=== PATIENT | male | born 1985 | race Caucasian/White ===

== ENCOUNTER 2024-01-04 18:42 | Emergency (ER) | payer OTHER, SELFPAY ==
[2024-01-04 18:47] VITALS: BP 157/72; PULSE 82; RESP 20; TEMP 37.4; O2SAT 96; BMI 38.3
--- NOTE | 2024-01-04 18:53 | ED.GENADULT ---
HPI - General Adult General Chief complaint: Upper Respiratory Symptoms Stated complaint: sinus pressure right ear pain Source: patient Mode of arrival: ambulatory Limitations: no limitations History of Present Illness HPI narrative: 38 yold male presents to the ED for coughing with yellow & Green Phleghm, and right ear pain since Thursday. Patient states no chest pain or shortness of breath Related Data Previous Rx's ?Medication ?Instructions ?Recorded amoxicillin 875 mg-potassium 1 tab PO Q12H 10 days #20 tabs 01/04/24 clavulanate 125 mg tablet oseltamivir 75 mg capsule (Tamiflu) 75 mg PO BID 5 days #10 caps 01/04/24 Allergies Allergy/AdvReac Type Severity Reaction Status Date / Time No Known Allergies Allergy Verified 01/04/24 18:49 [No Known Allergies*] Review of Systems Review of Systems: congestion, cough with yellow & green phelghm, right ear pain Yes all other systems are reviewed and are negative [facility] Social History Social History Advance Directives: No Advance Directives Information Provided: No Physical Exam ED Vital Signs: Vital Signs - 24 hr 01/04/24 18:47 Temperature 99.4 F Pulse Rate 82 Respiratory Rate 20 Blood Pressure 157/72 H Pulse Oximetry 96 Oxygen Delivery Method Room Air BMI result Body Mass Index 38.3 Const General: cooperative, healthy appearing, comfortable, no acute distress, well developed, alert and awake Orientation/consciousness: oriented to person, oriented to place, oriented to time and patient oriented x3 HENMT Head: Yes normal to inspection, Yes No palpable skull fracture present, Yes normocephalic and Yes atraumatic Ears: hearing grossly normal bilaterally, external ears normal, TM's normal bilaterally, TM normal on the right, TM normal on the left, EAC's normal, mastoids normal and no periauricular adenopathy Throat: Yes posterior oropharynx normal, Yes tonsils normal and Yes uvula midline Neck Neck: Yes normal visual inspection, Yes full ROM, Yes no lymphadenopathy, Yes no meningeal signs, Yes trachea midline, Yes supple, No anterior neck swelling and No tender Chest Chest palpation & inspection: normal inspection of the chest and normal palpation of entire chest wall Resp Effort & Inspection: normal respiratory effort and able to speak in complete sentences Auscultation: clear to auscultation bilaterally Cardio Jugular venous distension: no JVD Heart sounds: S1 normal heart sound present and S2 normal heart sound present GI Inspection: Yes normal to inspection Palpation (GI): Soft to palpation, not firm, nontender, no guarding and not rigid General: Yes no CVA tenderness Back/Spine/Pelvis Back: no CVA tenderness and No back tenderness Skin General skin exam: no rashes or lesions noted, elasticity normal and turgor normal Neuro General: oriented to person, oriented to place, oriented to time, patient oriented x3, gait normal, tone normal, moves all extremities, Normal light touch and pain sensation, no meningeal signs and no focal motor deficits Extrem General: Yes normal to inspection, Yes full ROM and Yes capillary refill normal Psych Appearance: grossly normal, well kempt and not disheveled Course Course Course Narrative: RME: 38 yold male presents to the ED for sinus pressure, nasal congestion, cough, chills, and headache. SARS, and strep ordered Medical Decision Making Medical Decision Making MDM Narrative: RME: 38 yold male presens to the ED for URI symptoms. Patient well appearing. Patient postiive for Strep and influenza. Patient dischaged with aumgenint and tamiflu. patient explained worrisome signs and informed to return to the ED if he has them. Differential Diagnosis Differential Diagnoses: The differential diagnosis associated with the presentation includes (flu, strep, covid, RSV) Admission/Observation Consideration of admission/observation: Escalation of care including admission/observation considered Lab Data [facility] Lab Attestation statement: I reviewed the patient's lab results. Labs: Lab Results 01/04/24 Range/Units 19:31 Influenza Type A (PCR) POSITIVE A (Negative) Influenza Type B (PCR) NEGATIVE (Negative) RSV RNA Qual (PCR) NEGATIVE (Negative) SARS-CoV-2 RNA (RT-PCR) NEGATIVE (Negative) S. pyogenes GrpA JOSE ALFREDO Positive A (Negative) Independent Historian Clinical information obtained from an independent historian. History obtained from or confirmed by: Other (patient) External Record Review External record reviewed: Other (prior visits) Prescription Management I considered prescription management with: Antiviral and Antibiotic Discharge Plan Discharge Clinical Impression: Influenza, Strep throat Patient Disposition: Home, Self-Care Instructions: Strep Throat (ED), Influenza (ED) Additional Instructions: You tested positive for influenza strep throat. You will be discharged with Tamiflu and antibiotics. Return to the ED immediately for any drooling, change in voice, chest pain, shortness of breath, headache dizziness, rash, or any other concerning symptoms. Prescriptions: New oseltamivir [Tamiflu] 75 mg capsule 75 mg PO BID 5 Days Qty: 10 0RF amoxicillin-pot clavulanate 875-125 mg tablet 1 tab PO Q12H 10 Days Qty: 20 0RF Stand Alone Forms: Work/School Release Interventions: ED Discharge Assessment Last Done: 01/04/24 20:54 Discharge Date/Time: 01/04/24 20:58 Print Language: Dutch
[2024-01-04 19:43] LABS: IDNOW Serial# 08D9AD1C; Strep A Nucleic Acid Positive (Negative)
[2024-01-04 20:13] LABS: Influenza A PCR POSITIVE (Negative); Influenza B PCR NEGATIVE (Negative); Resp Syncy Virus RNA Qual PCR NEGATIVE (Negative); SARS COV2 PCR INHOUSE NEGATIVE (Negative)
[2024-01-04 20:54] VITALS: BP 136/80; PULSE 87; RESP 16; TEMP 37.3; O2SAT 97
== END 2024-01-04 20:58 | disposition home or self-care (01) ==
PROVIDERS: Emergency Provider Emergency Medicine
DX: J11.1 Influenza due to unidentified influenza virus with other respiratory manifestations (principal); J02.0 Streptococcal pharyngitis
CPT/HCPCS: 0241U; 87651; 99282; 99283

== ENCOUNTER 2024-10-20 08:57 | Emergency (ER) | payer OTHER, SELFPAY ==
--- NOTE | ~2024-10-20 | CT_ITS ---
EXAMINATION: CT ABDOMEN AND PELVIS WITHOUT CONTRAST CLINICAL INFORMATION: Flank pain, rule out kidney stone, hematuria. COMPARISON: 06/06/2018. TECHNIQUE: Multidetector volumetric imaging was performed from the superior aspect of the liver through the pubic symphysis. Sagittal and coronal reformatted images were obtained on the technologist's workstation. This CT examination was performed using dose optimization techniques as appropriate, variously including the following: *Automated exposure control *Adjustment of mA and/or kV according to patient size (this includes techniques or standardized protocols for targeted exams where dose is matched to indication/reason for exam; i.e. extremities or head) *Use of iterative reconstruction technique FINDINGS: LUNG BASES: -Mild motion degradation. Dependent atelectasis in the superior segment right lower lobe. Lung bases otherwise clear. No effusions. -Heart size is normal. -There is a small to moderate-sized type I hiatus hernia. LIVER, GALLBLADDER, AND BILIARY TREE: There is mild hepatomegaly, and diffuse hepatic fatty infiltration. There are foci of focal fatty sparing abutting the gallbladder fossa. No suspicious hepatic lesion is evident allowing for noncontrast technique. Hepatic contour is smooth. No intrahepatic or extrahepatic biliary dilatation. The gallbladder is unremarkable with no evidence of radiopaque gallstones, gallbladder wall thickening, or obvious pericholecystic inflammatory changes. PANCREAS: Unremarkable. SPLEEN: Unremarkable. ADRENAL GLANDS: Unremarkable. KIDNEYS AND URETERS: The kidneys are normal in size, shape, and attenuation. No hydronephrosis, hydroureter, or calculi seen. No perinephric stranding. BLADDER: Underdistended. No focal abnormality. GASTROINTESTINAL TRACT: The small and large bowel are unremarkable. The appendix is unremarkable. ABDOMINAL WALL: No significant hernia is appreciated. LYMPH NODES: Normal. VASCULAR: Unremarkable. PELVIC VISCERA: The prostate and seminal vesicles are unremarkable. OSSEOUS STRUCTURES: Unremarkable. CT/CT abdomen pelvis wo IV con IMPRESSION: 1. No acute findings. 2. No CT explanation for flank pain. No renal calculi, hydronephrosis, or hydroureter. 3. Mild hepatomegaly with diffuse fatty infiltration. Electronically signed by: Bro Rangel MD 10/20/2024 02:35 PM [facility]
[2024-10-20 09:18] VITALS: BP 142/87; PULSE 76; RESP 16; TEMP 36; O2SAT 98; BMI 29.6
[2024-10-20 09:52] LABS: MANUAL DIFF FLAG NO
[2024-10-20 09:53] LABS: Basophils Percent Auto 0.4 % (0-2); Eosinophils Absolute Auto 0.7 X10*3/uL (0.0-0.4); Eosinophils Percent Auto 7.2 % (0-4); Hematocrit 44.9 % (42.0-52.0); Hemoglobin 15.6 g/dl (14.0-18.0); Imm Gran Abs Auto 0.04 X10*3/uL (0.00-0.03); Imm Gran Pct Auto 0.4 % (0.0-0.4); Mean Corpuscular HGB Conc 34.7 g/dl (31.0-36.0); Mean Corpuscular Hemoglobin 30.1 pg (27.0-33.0); Mean Corpuscular Volume 86.7 fL (80.0-98.0); Mean Platelet Volume 8.7 fL (9.4-12.4); Monocytes Absolute Auto 0.8 X10*3/uL (0.1-1.2); Monocytes Percent Auto 9.1 % (2-11); Neutrophils Absolute Auto 6.5 x10*3/uL (2.0-8.3); Neutrophils Percent Auto 71.9 % (45-73); Platelet Count 156 X10*3/uL (160-400); Red Blood Count 5.18 X10*6/uL (4.60-5.80); Red Cell Distribution Width 12.2 % (11.0-16.0)
[2024-10-20 10:10] LABS: Alanine Aminotransferase 116 U/L (0-40); Albumin Level 4.1 g/dL (3.5-5.0); Alkaline Phosphatase 108 U/L (39-117); Anion Gap 9 (12-20); Aspartate Amino Transferase 62 U/L (5-37); Blood Urea Nitrogen 9 mg/dL (9-16); Calcium 9.2 mg/dL (8.4-10.2); Carbon Dioxide 29 mmol/L (22-29); Chloride 105 mmol/L (96-108); Estimated Glomerular Filt Rate > 60; Glucose Random 115 mg/dL (60-115); Potassium 4.4 mmol/L (3.3-5.1); Sodium 139 mmol/L (135-145); Total Protein 7.3 g/dL (6.5-8.0)
[2024-10-20 13:03] LABS: Appearance Urine Clear; Color Urine Dark Yellow; Glucose Urine UA Negative (Negative); Leukocyte Esterase Urine Negative (Negative); Nitrite Urine Negative (Negative); PH 6.5 (5.0-9.0); Specific Gravity - Urine >= 1.030 (1.005-1.025); UMIC TRIGGER UACC YES; Urine Blood Moderate (2+) (Negative); Urine Ketones Negative (Negative); Urine Protein Trace mg/dL (Neg-Trace)
[2024-10-20 13:08] LABS: Bacteria Urine None Seen (None Seen); Hyaline Casts Urine 0-2 /LPF (0-2); RBC Urine >20 /HPF (0-2); Squamous Epithelial Cell Urine 0-2 /HPF (0-2); WBC Urine 0-5 /HPF (0-5)
[2024-10-20 16:00] VITALS: BP 132/76; PULSE 73; RESP 19; TEMP 36.6; O2SAT 98
--- NOTE | 2024-10-20 17:06 | ED_ITS ---
HPI - General Adult General Chief complaint: Back Pain/Injury Stated complaint: low back pain Time Seen by Provider: 10/20/24 11:55 History of Present Illness HPI narrative: Patient with 2 complaints, 1 is pain in his back, he has back pain frequently from arthritis but this is different in the flank it is on both sides but worse on the left and feels like his prior kidney stone, this pain began this morning, he also says there is some mild burning with urination, there is no incontinence, no change to bowel habits He says he is sexually active with only his , denies any discharge, no testicular pain or swelling, no nausea vomiting or diarrhea Pain is it back is continuously present it is a little worse with movement but not relieved by finding a comfortable position No chest pain no fever no cough Related Data Previous Rx's ?Medication ?Instructions ?Recorded amoxicillin 875 mg-potassium 1 tab PO Q12H 10 days #20 tabs 01/04/24 clavulanate 125 mg tablet oseltamivir 75 mg capsule (Tamiflu) 75 mg PO BID 5 days #10 caps 01/04/24 ibuprofen 600 mg tablet 600 mg PO Q6H PRN pain #20 tabs 10/20/24 Allergies Allergy/AdvReac Type Severity Reaction Status Date / Time No Known Allergies Allergy Verified 10/20/24 09:20 [No Known Allergies*] [facility] Past Medical History Source: nursing notes reviewed Social History Social History Advance Directives: No Advance Directives Information Provided: Yes Do you have a plan to hurt others: No Plan Physical Exam ED Vital Signs: Vital Signs - 24 hr 10/20/24 09:18 Temperature 96.8 F Pulse Rate 76 Respiratory Rate 16 Blood Pressure 142/87 H Pulse Oximetry 98 Oxygen Delivery Method Room Air BMI result Body Mass Index 29.6 Patient is uncomfortable appearing Neck is supple Chest clear to auscultation bilateral Heart no murmur Abdomen is soft and nontender The back exam there is tenderness from flank down to lower lumbar area on both left and right size, pain is worse with movement but remains present at rest There is no focal bony tenderness, there is no rash on the skin of the back Extremities full range of motion x4, no calf swelling or tenderness Skin no rash Neuro gait balance are normal, motor is 5/5 x4, sensation intact and symmetrical in distal extremities Course Course Course Narrative: CT abdomen and pelvis without contrast showed no acute finding no kidney stones no hydronephrosis no hydroureter CBC no white count no anemia platelets were 156 AST was 62 and ALT was 116 elevated, patient will be advised to follow with primary doctor for repeat testing Urinalysis showed over 20 rbc's, 0-5 WBC no bacteria Serology for GC chlamydia is pending, patient states he is sexually active with only 1 partner his , denies any discharge Patient actually had resolution of his flank and back pain while here in the ER with no analgesics, he did say it felt very similar to his prior kidney stone, it is possible he passed a small stone But main concern is microscopic hematuria and he is advised that it is very important follow-up with urologist that malignancy is on the differential for microscopic hematuria, he says he will follow up and that he has a primary care doctor and will get a referral if needed and will also call the urologist Patient is discharged and will be contacted if GC or chlamydia are positive, and is advised he can return to the ER any time Medical Decision Making Lab Data MDM Lab Attestation statement: I reviewed the patient's lab results. 10/20/24 09:49 10/20/24 09:49 Labs: Lab Results 10/20/24 10/20/24 Range/Units 09:49 12:55 WBC 9.0 (4.8-10.8) X10*3/uL RBC 5.18 (4.60-5.80) X10*6/uL Hgb 15.6 (14.0-18.0) g/dl Hct 44.9 (42.0-52.0) % MCV 86.7 (80.0-98.0) fL MCH 30.1 (27.0-33.0) pg MCHC 34.7 (31.0-36.0) g/dl RDW 12.2 (11.0-16.0) % Plt Count 156 L (160-400) X10*3/uL MPV 8.7 L (9.4-12.4) fL Immature Gran % (Auto) 0.4 (0.0-0.4) % Neut % (Auto) 71.9 (45-73) % Lymph % (Auto) 11.0 L (20-40) % [place] % (Auto) 9.1 (2-11) % Eos % (Auto) 7.2 H (0-4) % Baso % (Auto) 0.4 (0-2) % Lymph # (Auto) 1.0 L (1.2-4.9) X10*3/uL [place] # (Auto) 0.8 (0.1-1.2) X10*3/uL Eos # (Auto) 0.7 H (0.0-0.4) X10*3/uL Baso # (Auto) 0.0 (0.0-0.2) X10*3/uL Abs Immat Gran (auto) 0.04 H (0.00-0.03) X10*3/uL Absolute Neuts (auto) 6.5 (2.0-8.3) x10*3/uL Absolute Nucleated RBC 0.000 (0.0-0.012) X10*3/uL Nucleated RBC % (auto) 0.0 (0.0-0.2) /100WBC Sodium 139 (135-145) mmol/L Potassium 4.4 (3.3-5.1) mmol/L Chloride 105 (96-108) mmol/L Carbon Dioxide 29 (22-29) mmol/L Anion Gap 9 L (12-20) BUN 9 (9-16) mg/dL Creatinine 0.79 (0.5-1.4) mg/dL Estim Creat Clear Calc 137.0 Estimated GFR > 60 Random Glucose 115 (60-115) mg/dL Calcium 9.2 (8.4-10.2) mg/dL Total Bilirubin 1.0 (0.0-1.0) mg/dL AST 62 H (5-37) U/L ALT 116 H (0-40) U/L Alkaline Phosphatase 108 (39-117) U/L Total Protein 7.3 (6.5-8.0) g/dL Albumin 4.1 (3.5-5.0) g/dL Urine Color Dark Yellow Urine Appearance Clear Urine pH 6.5 (5.0-9.0) Ur Specific Cory >= 1.030 H (1.005-1.025) Urine Protein Trace (Neg-Trace) mg/dL Urine Glucose (UA) Negative (Negative) mg/dL Urine Ketones Negative (Negative) mg/dL Urine Blood Moderate (2+) H (Negative) Urine Nitrite Negative (Negative) Ur Leukocyte Esterase Negative (Negative) Urine RBC >20 H (0-2) /HPF Urine WBC 0-5 (0-5) /HPF Ur Squamous Epith Cells 0-2 (0-2) /HPF Urine Bacteria None Seen (None Seen) Hyaline Casts 0-2 (0-2) /LPF Discharge Plan Discharge Clinical Impression: Hematuria, microscopic Patient Disposition: Home, Self-Care Additional Instructions: Today we found blood in the urine, which has to be checked out and followed up by a Urology specialist as you may need further testing to find out what is causing this In rare cases at can be something bad so very important to follow-up You might need a referral from primary care so check in with your doctor to, but you can call the urologist whose name we have provide Return to the ER any time for blood in the urine, fever, worsening back or abdominal pain vomiting any worse condition or any concerns Use Motrin for mild aches and pains Drink plenty of flu Prescriptions: New ibuprofen 600 mg tablet 600 mg PO Q6H PRN (Reason: pain) Qty: 20 0RF No Action oseltamivir [Tamiflu] 75 mg capsule 75 mg PO BID 5 Days Qty: 10 0RF amoxicillin-pot clavulanate 875-125 mg tablet 1 tab PO Q12H 10 Days Qty: 20 0RF Referrals: Juan A Acosta MD [Physician] - (Microscopic hematuria) Stand Alone Forms: Work/School Release Print Language: Bulgarian
[2024-10-20 17:26] VITALS: BP 132/76; PULSE 73; RESP 19; TEMP 36.6; O2SAT 98
[2024-10-20 18:37] LABS: CT PCR NOT DETECTED (Not Detect.); NG PCR NOT DETECTED (Not Detect.)
== END 2024-10-20 19:04 | disposition home or self-care (01) ==
PROVIDERS: Physician Assistant Medical; Emergency Provider Emergency Medicine
DX: R31.29 Other microscopic hematuria (principal); R30.0 Dysuria
CPT/HCPCS: 36415; 74176; 80053; 81001; 81003; 85025; 87491; 87591; 99283; 99284

== ENCOUNTER → 2024-10-20 13:24 | Outpatient (BNV) | payer OTHER, SELFPAY | PROVIDERS: Emergency Provider Emergency Medicine; Visit Provider Radiology Diagnostic Radiology | DX: M54.50 Low back pain, unspecified (principal) | CPT/HCPCS: 74176 ==

== ENCOUNTER 2024-10-25 15:29 | Emergency (ER) | payer OTHER, SELFPAY ==
--- NOTE | ~2024-10-25 | CT_ITS ---
CLINICAL HISTORY: infection CT sinuses without contrast Comparison: None Findings: No acute fracture or dislocation injury identified. The bilateral globes appear intact. No retrobulbar edema or hematoma visualized. Minimal mucosal thickening identified within the bilateral sphenoid sinuses and bilateral maxillary sinuses. Minimal to mild mucosal thickening identified within the ethmoid air cells. The bilateral frontal sinuses appear clear. The left ostiomeatal unit appears patent. Mild mucosal thickening present at the right hiatus semilunaris. No rachel bullosa or Jazmín cells. The nasal airways are patent. Mucosal thickening identified within the nasal cavity on the right. Rightward deviation of the anterior nasal septum present. The visualized portions of the bilateral mastoid air cells appear clear. Dental caries are present. IMPRESSION: 1. Minimal to mild mucosal thickening identified within the paranasal sinuses as described above with mild mucosal thickening at the right hiatus semilunaris and mucosal thickening within the right nasal cavity. This document has been electronically signed by: Bryson Drake MD on 10/26/2024 00:53:02
--- NOTE | ~2024-10-25 | XR_ITS ---
CLINICAL HISTORY: cough, 2 view chest x-ray Comparison: None Findings: The lungs are clear. Heart size is normal. No acute fracture. IMPRESSION: 1. No acute findings. This document has been electronically signed by: Renuka Yanez MD on 10/25/2024 20:53:43
--- NOTE | ~2024-10-25 | XR_ITS ---
CLINICAL HISTORY: pain, 4 view left knee Comparison: None Findings: Bones intact. No dislocations. No joint effusion. No radiopaque foreign body. IMPRESSION: 1. No acute fracture or dislocation injury identified at the left knee. This document has been electronically signed by: Bryson Drake MD on 10/25/2024 22:38:48
[2024-10-25 16:11] VITALS: BP 132/72; PULSE 113; RESP 18; TEMP 37.6; O2SAT 97; BMI 37.6
--- NOTE | 2024-10-25 16:19 | ED.GENADULT ---
HPI - General Adult General Chief complaint: General Medical Stated complaint: Lower back pain Time Seen by Provider: 10/25/24 20:01 Source: patient Limitations: language barrier History of Present Illness ED Provider: Sarahi Ahmadi PA-C HPI narrative: 38-year-old male presents with multiple complaints. Patient states he was seen in the emergency department 5 days ago, found to have blood in his urine, was given urology follow up. He has been having ongoing back, bilateral hip and left knee pain. He states he verbalized his concerns at that time. No change in the musculoskeletal symptoms. Denies inability to ambulate, or flex and extend the left knee. Denies redness or swelling of the joint. Denies history of gout. Denies ongoing flank pain, dysuria or hematuria. He states his urinary symptoms have resolved. In addition, patient states he has been having cyclic nocturnal fevers for a week. Over the past 2 days, he developed bloody nasal secretions. He denies that he is coughing up bloody mucus. Denies sick contacts with a febrile illness. Related Data Previous Rx's ?Medication ?Instructions ?Recorded amoxicillin 875 mg-potassium 1 tab PO Q12H 10 days #20 tabs 01/04/24 clavulanate 125 mg tablet oseltamivir 75 mg capsule (Tamiflu) 75 mg PO BID 5 days #10 caps 01/04/24 ibuprofen 600 mg tablet 600 mg PO Q6H PRN pain #20 tabs 10/20/24 amoxicillin 875 mg-potassium 1 tab PO BID #14 tabs 10/26/24 clavulanate 125 mg tablet Allergies Allergy/AdvReac Type Severity Reaction Status Date / Time No Known Allergies Allergy Verified 10/25/24 16:16 [No Known Allergies*] Review of Systems Review of Systems: Yes all other systems are reviewed and are negative Constitutional: Constitutional: Reports fatigue, Reports fever(s) and Reports malaise ENT: Reports nasal congestion, Reports nasal discharge and Reports post nasal drip Cardiovascular: Cardiovascular: Denies chest pain and Denies dyspnea Respiratory: Respiratory: Denies cough, Denies dyspnea and Denies wheezing Gastrointestinal: Gastrointestinal: Denies abdominal pain, Denies diarrhea, Denies nausea and Denies vomiting Genitourinary: Genitourinary: Denies hematuria, Denies dysuria, Denies flank pain, Denies penile discharge and Denies testicular pain Musculoskeletal: Musculoskeletal: Reports back pain, Reports myalgias, Reports arthralgias, Denies joint swelling and Denies radiating pain into limb Endocrine: Endocrine: Reports fatigue Allergic/Immunologic: Allergic/Immunologic: Denies wheezing [facility] Past Medical History Attestation statement: The following information was validated with the patient. Social History Social History Smoked in Last 30 Days: No Use of substances other than those prescribed or required for medical reasons: Yes Substance Use Type: Marijuana Advance Directives: No Advance Directives Information Provided: No Physical Exam ED Vital Signs: Vital Signs - 24 hr 10/25/24 16:11 10/25/24 19:40 10/25/24 23:22 Temperature 99.6 F 98.4 F 100.2 F Pulse Rate 113 H 98 108 H Respiratory Rate 18 20 20 Blood Pressure 132/72 139/59 L 115/54 L Pulse Oximetry 97 100 94 Oxygen Delivery Method Room Air Room Air Room Air 10/26/24 00:43 Temperature 98.6 F Pulse Rate Respiratory Rate Blood Pressure Pulse Oximetry Oxygen Delivery Method BMI result Body Mass Index 37.6 Const Other: Alert Orientation/consciousness: patient oriented x3 Resp Other: No tachypnea, lungs clear to auscultation Cardio Other: Normal peripheral perfusion Skin Other: Warm dry no rash Neuro Other: Antalgic gait secondary to left knee pain General: patient oriented x3, no focal motor deficits and CN's II-XI intact bilaterally Extrem Other: Patient able to flex and extend the left knee, pain is elicited medially, there was no overlying warmth or swelling or erythema noted Psych Other: Cooperative Course Course Course Narrative: This is an RME: Additional HPI, ROS, PE not included below will be deferred to primary provider. RME assessment and note performed by: Nurys Dougherty PA-C This is a [id number]-male who presents to the ER with a complaint of subjective fevers and BL hip and left knee pain. Pt tachycardic, no CP or SOB. Plan: Labs, EKG, UA, further ER eval needed. Reevaluation(s) Reevaluation #1: Concerned for sepsis lactic results at 3.2, blood cultures already obtained as well, he was given 500 mL of saline, still do not have a source, starting ceftriaxone Time: 22:08 Reevaluation #2: Patient developed a fever, his pressure is now 111 sbp, he is mildly tachy, giving an additional 1L of fluid and Toradol, CT sinuses pending Time: 23:39 Reevaluation #3: At the time of discharge the patient was no longer febrile, second lactic acid 1.1......treating for sinusitis Time: 01:36 Medications Administered Generic Name Dose Route Start Last Admin Trade Name Freq PRN Reason Stop Dose Admin Sodium Chloride 1,000 mls @ 999 mls/hr 10/26/24 00:30 10/26/24 00:38 Ns IV 10/26/24 01:30 999 mls/hr .Q1H1M SELMA Administration Discontinued Medications Generic Name Dose Route Start Last Admin Trade Name Freq PRN Reason Stop Dose Admin Ceftriaxone Sodium 2 gm 10/25/24 22:09 10/25/24 22:20 Ceftriaxone Sodium 2 Gm Vial IVPUSH 10/25/24 22:10 2 gm ONCE ONE Administration Sodium Chloride 500 mls @ 500 mls/hr 10/25/24 21:04 10/25/24 22:45 Ns IV 10/25/24 22:03 Infused .Q1H ONE Infusion Ketorolac Tromethamine 15 mg 10/25/24 23:39 10/25/24 23:59 Ketorolac Tromethamine 15 Mg/Ml Vial IVPUSH 10/25/24 23:40 15 mg ONCE ONE Administration Medical Decision Making Medical Decision Making MDM Narrative: 38-year-old male presents with multiple complaints. Patient states he was seen in the emergency department 5 days ago, found to have blood in his urine, was given urology follow up. He has been having ongoing back, bilateral hip and left knee pain. He states he verbalized his concerns at that time. No change in the musculoskeletal symptoms. Denies inability to ambulate, or flex and extend the left knee. Denies redness or swelling of the joint. Denies history of gout. Denies ongoing flank pain, dysuria or hematuria. He states his urinary symptoms have resolved. In addition, patient states he has been having cyclic nocturnal fevers for a week. Over the past 2 days, he developed bloody nasal secretions. He denies that he is coughing up bloody mucus. Denies sick contacts with a febrile illness. Problem: Chronic back hip and knee pain History: Per patient I have considered the following differential diagnoses: Septic arthritis, gout, cellulitis, pneumonia, sinusitis, viral syndrome,sepsis Plan: Patient here with numerous complaints, some screening labs were obtained while he was a triage including a viral panel. A chest x-ray was not obtained. When I initially read the triage note, it appeared that he was coughing up bloody secretions, I am ordering a chest x-ray. He is also complaining of bloody nasal secretions with postnasal drip. He may have a CT scan of the sinuses. He states he has only had symptoms for 2 days, I typically would not treat his sinusitis unless he had symptoms for 2 weeks. However, he could have been congested for longer, and now this is his 1st manifestation of a bacterial sinusitis. The patient is not the best historian. In regard to the chronic back, bilateral hip and knee pain, he states he is most bothered by the knee pain. He is able to flex and extend, I do have low suspicion for a septic arthritis, we will obtain an x-ray, adding on inflammatory markers and a uric acid. I am considering potential sepsis, at this point he is afebrile, temp was 99.6?, he had mild tachycardia early on, adding blood cultures lactic acid and giving 500 mL of normal saline as he is normotensive. I have independently reviewed the following tests: Labs: Leukocytosis with left shift, no electrolyte abnormality, 1st lactic acid 3.2, the 2nd is 1.1, viral panel negative, inflammatory markers minimally elevated Chest x-ray:indings: The lungs are clear. Heart size is normal. No acute fracture. IMPRESSION: 1. No acute findings. This document has been electronically signed by: Renuka Yanez MD on 10/25/2024 20:53:43 CT sinuses: Findings: No acute fracture or dislocation injury identified. The bilateral globes appear intact. No retrobulbar edema or hematoma visualized. Minimal mucosal thickening identified within the bilateral sphenoid sinuses and bilateral maxillary sinuses. Minimal to mild mucosal thickening identified within the ethmoid air cells. The bilateral frontal sinuses appear clear. The left ostiomeatal unit appears patent. Mild mucosal thickening present at the right hiatus semilunaris. No rachel bullosa or Jazmín cells. The nasal airways are patent. Mucosal thickening identified within the nasal cavity on the right. Rightward deviation of the anterior nasal septum present. The visualized portions of the bilateral mastoid air cells appear clear. Dental caries are present. IMPRESSION: 1. Minimal to mild mucosal thickening identified within the paranasal sinuses as described above with mild mucosal thickening at the right hiatus semilunaris and mucosal thickening within the right nasal cavity. X-ray left knee:Comparison: None Findings: Bones intact. No dislocations. No joint effusion. No radiopaque foreign body. IMPRESSION: 1. No acute fracture or dislocation injury identified at the left knee. This document has been electronically signed by: Bryson Drake MD on 10/25/2024 22:38:48 CT sinus: Findings: No acute fracture or dislocation injury identified. The bilateral globes appear intact. No retrobulbar edema or hematoma visualized. Minimal mucosal thickening identified within the bilateral sphenoid sinuses and bilateral maxillary sinuses. Minimal to mild mucosal thickening identified within the ethmoid air cells. The bilateral frontal sinuses appear clear. The left ostiomeatal unit appears patent. Mild mucosal thickening present at the right hiatus semilunaris. No rachel bullosa or Jazmín cells. The nasal airways are patent. Mucosal thickening identified within the nasal cavity on the right. Rightward deviation of the anterior nasal septum present. The visualized portions of the bilateral mastoid air cells appear clear. Dental caries are present. IMPRESSION: 1. Minimal to mild mucosal thickening identified within the paranasal sinuses as described above with mild mucosal thickening at the right hiatus semilunaris and mucosal thickening within the right nasal cavity. Lab Data 10/25/24 16:52 10/25/24 16:53 Labs: Lab Results 10/25/24 10/25/24 10/25/24 Range/Units 16:52 16:53 21:35 WBC 13.9 H (4.8-10.8) X10*3/uL RBC 5.09 (4.60-5.80) X10*6/uL Hgb 15.2 (14.0-18.0) g/dl Hct 43.7 (42.0-52.0) % MCV 85.9 (80.0-98.0) fL MCH 29.9 (27.0-33.0) pg MCHC 34.8 (31.0-36.0) g/dl RDW 12.2 (11.0-16.0) % Plt Count 292 D (160-400) X10*3/uL MPV 8.8 L (9.4-12.4) fL Immature Gran % (Auto) 1.0 H (0.0-0.4) % Neut % (Auto) 82.1 H (45-73) % Lymph % (Auto) 5.9 L (20-40) % [place] % (Auto) 4.7 (2-11) % Eos % (Auto) 5.8 H (0-4) % Baso % (Auto) 0.5 (0-2) % Lymph # (Auto) 0.8 L (1.2-4.9) X10*3/uL [place] # (Auto) 0.7 (0.1-1.2) X10*3/uL Eos # (Auto) 0.8 H (0.0-0.4) X10*3/uL Baso # (Auto) 0.1 (0.0-0.2) X10*3/uL Abs Immat Gran (auto) 0.14 H (0.00-0.03) X10*3/uL Absolute Neuts (auto) 11.4 H (2.0-8.3) x10*3/uL Absolute Nucleated RBC 0.000 (0.0-0.012) X10*3/uL Nucleated RBC % (auto) 0.0 (0.0-0.2) /100WBC ESR 16 H (0-15) MM/HR Sodium 136 (135-145) mmol/L Potassium 4.3 (3.3-5.1) mmol/L Chloride 101 (96-108) mmol/L Carbon Dioxide 27 (22-29) mmol/L Anion Gap 12 (12-20) BUN 9 (9-16) mg/dL Creatinine 0.76 (0.5-1.4) mg/dL Estim Creat Clear Calc 155.0 Estimated GFR > 60 Random Glucose 123 H (60-115) mg/dL Lactic Acid 3.2 H* (0.5-2.0) mmol/L Lactic Acid F/U @ 2Hr (0.5-2.0) mmol/L Uric Acid 3.7 (3.4-7.0) mg/dL Calcium 8.8 (8.4-10.2) mg/dL Magnesium 1.9 (1.6-2.6) mg/dL Total Bilirubin 0.5 (0.0-1.0) mg/dL Direct Bilirubin 0.2 (0.0-0.5) mg/dL AST 58 H (5-37) U/L ALT 95 H (0-40) U/L Alkaline Phosphatase 118 H (39-117) U/L C-Reactive Protein 5.71 H (< or = 0.50) mg/dL Total Protein 7.3 (6.5-8.0) g/dL Albumin 3.8 (3.5-5.0) g/dL Influenza Type A (PCR) NEGATIVE (Negative) Influenza Type B (PCR) NEGATIVE (Negative) RSV RNA Qual (PCR) NEGATIVE (Negative) SARS-CoV-2 RNA (RT-PCR) NEGATIVE (Negative) 10/26/24 Range/Units 00:11 WBC (4.8-10.8) X10*3/uL RBC (4.60-5.80) X10*6/uL Hgb (14.0-18.0) g/dl Hct (42.0-52.0) % MCV (80.0-98.0) fL MCH (27.0-33.0) pg MCHC (31.0-36.0) g/dl RDW (11.0-16.0) % Plt Count (160-400) X10*3/uL MPV (9.4-12.4) fL Immature Gran % (Auto) (0.0-0.4) % Neut % (Auto) (45-73) % Lymph % (Auto) (20-40) % [place] % (Auto) (2-11) % Eos % (Auto) (0-4) % Baso % (Auto) (0-2) % Lymph # (Auto) (1.2-4.9) X10*3/uL [place] # (Auto) (0.1-1.2) X10*3/uL Eos # (Auto) (0.0-0.4) X10*3/uL Baso # (Auto) (0.0-0.2) X10*3/uL Abs Immat Gran (auto) (0.00-0.03) X10*3/uL Absolute Neuts (auto) (2.0-8.3) x10*3/uL Absolute Nucleated RBC (0.0-0.012) X10*3/uL Nucleated RBC % (auto) (0.0-0.2) /100WBC ESR (0-15) MM/HR Sodium (135-145) mmol/L Potassium (3.3-5.1) mmol/L Chloride (96-108) mmol/L Carbon Dioxide (22-29) mmol/L Anion Gap (12-20) BUN (9-16) mg/dL Creatinine (0.5-1.4) mg/dL Estim Creat Clear Calc Estimated GFR Random Glucose (60-115) mg/dL Lactic Acid (0.5-2.0) mmol/L Lactic Acid F/U @ 2Hr 1.1 (0.5-2.0) mmol/L Uric Acid (3.4-7.0) mg/dL Calcium (8.4-10.2) mg/dL Magnesium (1.6-2.6) mg/dL Total Bilirubin (0.0-1.0) mg/dL Direct Bilirubin (0.0-0.5) mg/dL AST (5-37) U/L ALT (0-40) U/L Alkaline Phosphatase (39-117) U/L C-Reactive Protein (< or = 0.50) mg/dL Total Protein (6.5-8.0) g/dL Albumin (3.5-5.0) g/dL Influenza Type A (PCR) (Negative) Influenza Type B (PCR) (Negative) RSV RNA Qual (PCR) (Negative) SARS-CoV-2 RNA (RT-PCR) (Negative) Discharge Plan Discharge Clinical Impression: Fever, Sinusitis Patient Disposition: Home, Self-Care Instructions: Sinusitis (ED), Fever in Adults (ED) Additional Instructions: You were found to have sinusitis, you develop a fever in the emergency department. See home care instructions. Take the Augmentin as directed. Follow up with your primary care provider as needed. Prescriptions: New amoxicillin-pot clavulanate 875-125 mg tablet 1 tab PO BID Qty: 14 0RF No Action oseltamivir [Tamiflu] 75 mg capsule 75 mg PO BID 5 Days Qty: 10 0RF amoxicillin-pot clavulanate 875-125 mg tablet 1 tab PO Q12H 10 Days Qty: 20 0RF ibuprofen 600 mg tablet 600 mg PO Q6H PRN (Reason: pain) Qty: 20 0RF Print Language: Turkish
--- NOTE | 2024-10-25 16:21 | ECG_ITS ---
Test Reason : tachycardia Blood Pressure : */* mmHG Vent. Rate : 104 BPM Atrial Rate : 104 BPM P-R Int : 132 ms QRS Dur : 80 ms QT Int : 314 ms P-R-T Axes : 53 8 38 degrees QTcB Int : 412 ms Sinus tachycardia Otherwise normal ECG No previous ECGs available Referred By: Nurys Dougherty Electronically Signed By: GABRIEL LAKHANI
[2024-10-25 16:57] LABS: MANUAL DIFF FLAG NO
[2024-10-25 17:08] LABS: Basophils Absolute Auto 0.1 X10*3/uL (0.0-0.2); Basophils Percent Auto 0.5 % (0-2); Eosinophils Absolute Auto 0.8 X10*3/uL (0.0-0.4); Eosinophils Percent Auto 5.8 % (0-4); Hematocrit 43.7 % (42.0-52.0); Hemoglobin 15.2 g/dl (14.0-18.0); Imm Gran Abs Auto 0.14 X10*3/uL (0.00-0.03); Lymphocytes Absolute Auto 0.8 X10*3/uL (1.2-4.9); Lymphocytes Percent Auto 5.9 % (20-40); Mean Corpuscular HGB Conc 34.8 g/dl (31.0-36.0); Mean Corpuscular Hemoglobin 29.9 pg (27.0-33.0); Mean Corpuscular Volume 85.9 fL (80.0-98.0); Mean Platelet Volume 8.8 fL (9.4-12.4); Monocytes Absolute Auto 0.7 X10*3/uL (0.1-1.2); Monocytes Percent Auto 4.7 % (2-11); Neutrophils Absolute Auto 11.4 x10*3/uL (2.0-8.3); Neutrophils Percent Auto 82.1 % (45-73); Platelet Count 292 X10*3/uL (160-400); Red Blood Count 5.09 X10*6/uL (4.60-5.80); Red Cell Distribution Width 12.2 % (11.0-16.0); White Blood Count 13.9 X10*3/uL (4.8-10.8)
[2024-10-25 17:25] LABS: Alanine Aminotransferase 95 U/L (0-40); Albumin Level 3.8 g/dL (3.5-5.0); Alkaline Phosphatase 118 U/L (39-117); Anion Gap 12 (12-20); Aspartate Amino Transferase 58 U/L (5-37); Bilirubin Direct 0.2 mg/dL (0.0-0.5); Bilirubin Total 0.5 mg/dL (0.0-1.0); Blood Urea Nitrogen 9 mg/dL (9-16); Calcium 8.8 mg/dL (8.4-10.2); Carbon Dioxide 27 mmol/L (22-29); Chloride 101 mmol/L (96-108); Estimated Glomerular Filt Rate > 60; Glucose Random 123 mg/dL (60-115); Magnesium 1.9 mg/dL (1.6-2.6); Potassium 4.3 mmol/L (3.3-5.1); Sodium 136 mmol/L (135-145); Total Protein 7.3 g/dL (6.5-8.0)
[2024-10-25 17:38] LABS: Influenza A PCR NEGATIVE (Negative); Influenza B PCR NEGATIVE (Negative); Resp Syncy Virus RNA Qual PCR NEGATIVE (Negative); SARS COV2 PCR INHOUSE NEGATIVE (Negative)
[2024-10-25 19:40] VITALS: BP 139/59; PULSE 98; RESP 20; TEMP 36.9; O2SAT 100
--- OUTSIDE RECORDS SUMMARY | 2024-10-25 20:12 | XMS_ITS | Encounter Summary ---
Author Organization [employer] Address [address] [place] [address] Care Team Providers Care Supervisor Title Name Role Phone Unavailable Primary Care Provider Unavailabl e Reason for Visit * Reason Onset Date Comments NEW PT 10/21/2024 Encounter Details Date Type Department Care Team ([facility] st Contact Info) Description 10/21/2024 Telephone [facility] [address] [place] [address] Gio Hernandez MD [address] [place] [address] NEW PT Social History Tobacco Use Types Packs/Day Years Used Date Smoking Tobacco: Never Assessed Sex and Gender Information Value Date Recorded Sex Assigned at Male 07/28/2022 10:35 AM EDT Legal Sex Male 10:35 AM EDT Gender Identity Male 07/28/2022 10:35 AM EDT Sexual Orientation Choose not to disclose 2021 10:35 AM EDT documented as of this encounter Miscellaneous Notes * Telephone Encounter - Aaron Goncalves - 10/21/2024 1:23 PM EST Patient added to [facility] New Patient wait list as 10-21-24 * Telephone Encounter - Pernell Kasper - 10/21/2024 12:41 PM EST TC from caller requesting NEW PATIENT visit . DX : Arthritis Medical Concern: UTI Blood urine Needs to visit urologist Insurance name : [employer] Location : [place] Demographic information updated documented in this encounter Plan of Treatment Not on file documented as of this encounter Visit Diagnoses Not on filedocumented in this encounter
[2024-10-25 21:43] LABS: C Reactive Protein 5.71 mg/dL (< or = 0.50)
[2024-10-25] MEDS: 0.9 % Sodium Chloride 500 ML IV (21:45)
[2024-10-25 21:48] LABS: Uric Acid 3.7 mg/dL (3.4-7.0)
[2024-10-25 22:08] LABS: Lactic Acid 3.2 mmol/L (0.5-2.0)
[2024-10-25] MEDS: cefTRIAXone sodium 2 GM VIAL IVPUSH (22:20)
[2024-10-25 22:40] LABS: Erythrocyte Sedimentation Rate 16 MM/HR (0-15)
[2024-10-25 23:22] VITALS: BP 115/54; PULSE 108; RESP 20; TEMP 37.9; O2SAT 94
[2024-10-25 23:47] LABS: Reflex Lactate? Lactic Acid Added
[2024-10-25] MEDS: Ketorolac Tromethamine 15 MG/ML VIAL IVPUSH (23:59)
[2024-10-26] MEDS: 0.9 % Sodium Chloride 1,000 ML 999 ML IV (00:38)
[2024-10-26 00:40] LABS: ~Lactic Acid-LAB USE ONLY 1.1 mmol/L (0.5-2.0)
[2024-10-26 00:43] VITALS: TEMP 37
[2024-10-26 01:59] VITALS: BP 113/55; PULSE 83; RESP 14; TEMP 36.9; O2SAT 95
== END 2024-10-26 02:03 | disposition home or self-care (01) ==
PROVIDERS: Physician Assistant Medical; Emergency Provider Emergency Medicine
DX: R50.9 Fever, unspecified (principal); J32.8 Other chronic sinusitis; M54.50 Low back pain, unspecified; M25.562 Pain in left knee; M25.552 Pain in left hip; M25.551 Pain in right hip; M79.10 Myalgia, unspecified site; Z03.818 Encounter for observation for suspected exposure to other biological agents ruled out
CPT/HCPCS: 0241U; 36415; 70486; 71046; 73564; 80048; 80076; 83605; 83735; 84550; 85025; 85652; 86140; 87040; 93005; 96361; 96374; 96375; 99284; 99285; J0696; J1885

== ENCOUNTER → 2024-10-25 16:21 | Outpatient (BNV) | payer OTHER, SELFPAY | PROVIDERS: Emergency Provider Emergency Medicine; Visit Provider Internal Medicine | DX: R00.0 Tachycardia, unspecified (principal) | CPT/HCPCS: 93010 ==

== ENCOUNTER → 2024-10-25 20:15 | Outpatient (BNV) | payer OTHER, SELFPAY | PROVIDERS: Emergency Provider Emergency Medicine; Visit Provider Radiology Diagnostic Radiology | DX: B99.9 Unspecified infectious disease (principal) | CPT/HCPCS: 70486 ==

== ENCOUNTER 2024-12-15 08:15 | Outpatient (REF) | payer OTHER, SELFPAY ==
[2024-12-15 18:23] LABS: Urine Cytology See Pathology rpt
== END 2024-12-15 08:16 | disposition home or self-care (01) ==
LOC: HO.LNP 08:15
PROVIDERS: Visit Provider Nurse Practitioner Family
DX: R31.29 Other microscopic hematuria (principal); R31.0 Gross hematuria; F12.20 Cannabis dependence, uncomplicated
CPT/HCPCS: 81003; 88112; 99202

== ENCOUNTER 2024-12-15 08:15 | Outpatient (AMB) | payer OTHER, SELFPAY ==
--- NOTE | 2024-12-15 08:17 | A.OFFVIS_ITS ---
Intake Visit Reasons: micropic hematuria Intake Note: New Patient presents for initial visit for microscopic hematuria Urology Medications: none Blood Thinner: none Smoker: yes; marijuana Spanish Speaking Nanny Required: Yes Spanish Speaking Nanny Name: [phone] Accompanied by: Unknown Allergies No Known Allergies [No Known Allergies*] Allergy (Verified 12/15/24 08:42) Medication List - Last Reconciled 12/15/24 by MICHELLE Peoples No Known Home Meds HPI Comments Details: Bj is a very pleasant 39-year-old Belarusian-speaking male patient who was accompanied by his significant other at today's office visit. He presents to the office today as a new patient for gross hematuria. In discussion with the patient today he reports having seeked emergency room care a proximally 2 months ago for gross hematuria, flank pain as well as dysuria at which time a CT without contrast was performed. These results were reviewed with the patient today. 10/[address] no acute findings. No CT explanation for flank pain, no renal calculi, hydronephrosis, or hydroureter. When asked he denies any other episodes of gross hematuria since ER visit. He reports dysuria and flank pain he had been experiencing has since subsided. When asked he does report a longstanding history of marijuana use since the age of 14. Reports smoking multiple times per day. He also reports a previous workplace chemical exposure as he worked with [employer]. In office urinalysis results reviewed with the patient today 1+ microscopic hematuria otherwise within normal limits. We discussed at length potential causes of microscopic hematuria. I discussed reasons for blood in the urine may include but are not limited to kidney stones, cancer in the urinary tract, BPH, kidney stone disease or inflammatory conditions of the urinary tract. I have discussed workup to include cystoscopy evaluation. He denies urinary urgency, urinary frequency, incontinence, nocturia, dysuria, foul smelling urine, changes to urinary stream, flank pain, fever, and or chills. He is happy with his current voiding parameters. Plan The management of hematuria involves obtaining a CT scan with and without contrast to provide a complete assessment of potential renal or ureteral sources of bleeding. The patient has a history of regular marijuana use and occupational exposure to chemicals, warranting cystoscopic examination to exclude bladder cancer. A urine cytology test will be conducted to detect abnormal cells. A cystoscopy will be performed at the office after discussing all procedure aspects with the patient, including risks and obtaining consent. Insurance authorization is pending for scheduling the CT scan. Patient was informed and verbally consented to the use of an ambient scribe for clinic note documentation during this visit. Discussion Notes I have thoroughly discussed the likely causes of hematuria with the patient, emphasizing the importance of ruling out a malignancy given his smoking history and occupational exposure. I explained that while the CT scan without contrast showed no abnormalities, a contrast-enhanced study is essential for a comprehensive evaluation. We reviewed the cystoscopy procedure, outlining its necessity in assessing bladder health, potential risks, benefits, and its safety profile. The patient understood that while the procedure might be uncomfortable, it is critical in excluding bladder cancer. All insurance and scheduling logistics for the CT scan were communicated, and the patient has agreed to proceed with planned investigations. [facility] Social History Substance Use Type: Marijuana Review of Systems Const All systems reviewed & are unremarkable except as noted in HPI and below Physical Exam Const General: cooperative, healthy appearing, comfortable, no acute distress, well developed, alert and awake Nutritional Appearance: overweight Orientation/consciousness: patient oriented x3 Limitations: language barrier HEENT Head: Yes normal to inspection, Yes normocephalic and Yes atraumatic Ears: hearing grossly normal bilaterally Eyes General: appearance normal, both eyes and all related structures Neck Neck: Yes normal visual inspection and Yes trachea midline Chest Chest palpation & inspection: normal inspection of the chest Resp Effort & Inspection: normal respiratory effort and able to speak in complete sentences Cardio Rate: regular rate GI Inspection: Yes normal to inspection General: Yes no CVA tenderness Back/Spine/Pelvis Back: no CVA tenderness Skin General skin exam: no rashes or lesions noted Neuro General: patient oriented x3 Extrem General: Yes normal to inspection Psych Appearance: grossly normal and well kempt Mental Status: mental status grossly normal Speech and movement: Normal speech and movement present and Clear speech present Affect: normal affect Attitude: cooperative Thought process: Normal thought process present Thought content: Normal thought content present Insight: Fair insight present (Psych) Judgement: Fair judgement present (Psych) Results AMB Urinalysis, Automated UA Leukoctes 0 Edith/uL Last Edit by Smart Hologramsabiodun Khipu Systemssimi on 12/15/24 08:39 UA Nitrite Last Edit by Fundbasesimi on 12/15/24 08:39 UA Urobilinogen 0.2 mg/dL Last Edit by Fundbasesimi on 12/15/24 08:39 UA Protein 15 mg/dL Last Edit by Yieldbot on 12/15/24 08:39 UA pH 6.0 Last Edit by Yieldbot on 12/15/24 08:39 UA Blood 25 Choco/uL Last Edit by Fundbasesimi on 12/15/24 08:39 UA Specific [place] 1.025 Last Edit by Fundbasesimi on 12/15/24 08:39 UA Ketone Last Edit by Fundbasesimi on 12/15/24 08:39 UA Bilirubin 0 mg/dL Last Edit by Yieldbot on 12/15/24 08:39 UA Glucose 0 mg/dL Last Edit by Yieldbot on 12/15/24 08:39 Results Reviewed Results Reviewed: Laboratory Last Values Urine pH (Auto) 6.0 12/15/24 08:37 Specific [place] (Auto) 1.025 12/15/24 08:37 Urine Protein (Auto) 15 mg/dL 12/15/24 08:37 Glucose (UA)(Auto) 0 mg/dL 12/15/24 08:37 Urine Blood (Auto) 25 Choco/uL 12/15/24 08:37 Urine Bilirubin (Auto) 0 mg/dL 12/15/24 08:37 Urine Urobilinogen (Auto) 0.2 mg/dL 12/15/24 08:37 Leukocyte Esterase (Auto) 0 Edith/uL 12/15/24 08:37 Date of Service: 10/20/24 Procedure(s): CT abdomen pelvis wo IV con FINDINGS: LUNG BASES: -Mild motion degradation. Dependent atelectasis in the superior segment right lower lobe. Lung bases otherwise clear. No effusions. -Heart size is normal. -There is a small to moderate-sized type I hiatus hernia. LIVER, GALLBLADDER, AND BILIARY TREE: There is mild hepatomegaly, and diffuse hepatic fatty infiltration. There are foci of focal fatty sparing abutting the gallbladder fossa. No suspicious hepatic lesion is evident allowing for noncontrast technique. Hepatic contour is smooth. No intrahepatic or extrahepatic biliary dilatation. The gallbladder is unremarkable with no evidence of radiopaque gallstones, gallbladder wall thickening, or obvious pericholecystic inflammatory changes. PANCREAS: Unremarkable. SPLEEN: Unremarkable. ADRENAL GLANDS: Unremarkable. KIDNEYS AND URETERS: The kidneys are normal in size, shape, and attenuation. No hydronephrosis, hydroureter, or calculi seen. No perinephric stranding. BLADDER: Underdistended. No focal abnormality. GASTROINTESTINAL TRACT: The small and large bowel are unremarkable. The appendix is unremarkable. ABDOMINAL WALL: No significant hernia is appreciated. LYMPH NODES: Normal. VASCULAR: Unremarkable. PELVIC VISCERA: The prostate and seminal vesicles are unremarkable. OSSEOUS STRUCTURES: Unremarkable. IMPRESSION: 1. No acute findings. 2. No CT explanation for flank pain. No renal calculi, hydronephrosis, or hydroureter. 3. Mild hepatomegaly with diffuse fatty infiltration. Assessment & Plan Assessment & Plan (1) Gross hematuria: Code(s): R31.0 - Gross hematuria Category: Medical (2) Marijuana dependence: Code(s): F12.20 - Cannabis dependence, uncomplicated Category: Medical Plan In office urinalysis results reviewed with the patient today; as noted above; will send for urine cytology. We discussed at length potential causes of gross hematuria as well as further workup in risks and benefits of these interventions. Discussed, educated, and stressed the importance of limiting/quitting recreational marijuana for overall health and well-being. Will obtain CT urogram for further assessment evaluation. Will obtain BUN and creatinine for imaging. Currently denies any bothersome urinary issues or concerns. He reports be happy with current voiding parameters. Follow-up next available in office cystoscopy with imaging and labs to be completed prior; or sooner with any issues, concerns, and or questions. Orders: Orders Urine Cytology Today R31.29 - Other microscopic hematuria Blood Urea Nitrogen Today F12.20 - Cannabis dependence, uncomplicated, R31.0 - Gross hematuria AMB Urinalysis Automated Today Z13.9 - Encounter for screening, unspecified Creatinine Today F12.20 - Cannabis dependence, uncomplicated, R31.0 - Gross hematuria CT urogram Today F12.20 - Cannabis dependence, uncomplicated, R31.0 - Gross hematuria Medications: Discontinued ibuprofen Discontinued Reason: Patient no longer taking 600 mg PO Q6H PRN 20 tabs 0RF pain amoxicillin-pot clavulanate 875-125 mg Discontinued Reason: Patient no longer taking 1 tab PO BID 14 tabs 0RF amoxicillin-pot clavulanate 875-125 mg Discontinued Reason: Patient no longer taking 1 tab PO Q12H 10 days 20 tabs 0RF oseltamivir (Tamiflu) Discontinued Reason: Patient no longer taking 75 mg PO BID 5 days 10 caps 0RF Patient Instructions: The patient had an opportunity to ask questions regarding the treatment plan. All questions were answered. Physical exam, labs, and imaging were discussed and reviewed in detail. As well as risks, benefits, and discussion of treatment cho ices. No major barriers to understanding were identified. The patient expressed understanding and agreement with the above treatment plan. The patient was made aware they should contact our office by phone for worsening of their current condition, the appearance of new symptoms, or with any questions or concerns. Compliance is encouraged with any medications and follow up testing that is ordered. It is a privilege to be allowed the opportunity to participate in? your urological care.? Again, if you have any questions or concerns If you have any questions or concerns please do not hesitate to contact me. The office is [phone]. This note is constructed using voice recognition software. While every effort has been made to ensure accuracy firer glost kiln errors may have been included. Yours sincerely, MICHELLE Peoples Coding Level of Care Code New Pt Level 3 (74949) Diagnoses Gross hematuria R31.0 Marijuana dependence F12.20
--- OUTSIDE RECORDS SUMMARY | 2024-12-15 08:27 | XMS_ITS | Encounter Summary ---
Author Organization [employer] Address [address] [place] [address] Care Team Providers Care Publication Specialist Name Role Phone Unavailable Primary Care Provider Unavailabl e Reason for Visit * Reason Onset Date Comments NEW PT 10/21/2024 Encounter Details Date Type Department Care Team ([facility] st Contact Info) Description 10/21/2024 Telephone [facility] [address] [place] [address] Gio Hernandez MD [address] [place] [address] NEW PT Social History Tobacco Use Types [...] 10/21/2024 1:23 PM EST Patient added to [facility] New Patient wait list as 10-21-24 * Telephone Encounter - Pernell Kasper - 10/21/2024 12:41 PM EST TC from caller requesting NEW PATIENT visit . DX : Arthritis Medical Concern: UTI Blood urine Needs to visit urologist Insurance name : [employer] Location : [place] Demographic information updated documented in this encounter Plan of Treatment Upcoming Encounters Date Type Department Care Team (Late st Contact Info) Description 12/26/2024 10:45 AM EDT Office Visit [facility] [address] [place], [place] [phone] Jyoti Chopra DO [address] [place] [address] documented as of this encounter Visit Diagnoses Not on filedocumented in this encounter
--- OUTSIDE RECORDS SUMMARY | 2024-12-15 08:27 | XMS_ITS | Clinical Summary ---
Author Organization [facility] Address [address] [place] [address] Care Team Providers Care Counselor Aid Name Role Phone Unavailable Primary Care Provider Unavailabl e Encounters Date Type Department Care Team Description 10/21/2024 Telephone [facility] [address] [place] [address] [phone] Gio Hernandez MD NEW PT from Last 3 Months Social History Tobacco Use Types Packs/Day Years Used Date Smoking Tobacco: Never Assessed Sex and Gender Information Value Date Recorded Sex Assigned at Male 07/28/2022 10:35 AM EDT Legal Sex Male 10:35 AM EDT Gender Identity Male 07/28/2022 10:35 AM EDT Sexual Orientation Choose not to disclose 2021 10:35 AM EDT Last Filed Vital Signs Vital Sign Reading Time Taken Comments Blood Pressure 140/90 10/25/2019 12:01 AM EST Pulse 64 10/25/2019 12:01 AM EST Temperature - - Respiratory Rate - - Oxygen Saturation - - Inhaled Oxygen Concentration - - Weight 96.7 kg (213 lb 3.2 oz) 10/25/2019 12:01 AM EST Height 168.5 cm (5' 6.34 ) 10/25/2019 12:[address] Body Mass Index 34.06 10/25/2019 12:01 AM EST Plan of Treatment Upcoming Encounters Date Type Department Care Team (Late st Contact Info) Description 12/26/2024 10:45 AM EDT Office Visit [facility] [address] [place] [address] Jyoti Chopra DO [address] [place] [address] Health Maintenance Due Date Last Done Comments Depression Screening 1985 HIV Screening 1985 Lipid Panel 1985 SDOH Screening 1985 Alcohol/Substance Use Screening 1997 Tobacco Screening 1997 Family Planning (PISQ) 2000 Hepatitis C Screening 2003 DTaP/Tdap/Td Vaccines (1 - Tdap) 2004 Hepatitis B Vaccines (1 of 3 - 19+ 3-dose series) 2004 COVID-19 Vaccine (1 - 2023-2 5 season) 2024 Influenza Vaccine (#1) 2024 Zoster Vaccines (1 of 2) 2035 RSV Patients and Pa tients Aged 60 years or older (1 - 1-dose 75+ series) 2060 HIB Vaccines Aged Out No longer eligi ble based on patient's age to complete this topic HPV Vaccines Aged Out No longer eligi ble based on patient's age to complete this topic Hepatitis A Vaccines Aged Out No long er eligible based on patient's age to complete this topic IPV Vaccines Aged Out No longer eligi ble based on patient's age to complete this topic Meningococcal Vaccine Aged Out No yesenia coty eligible based on patient's age to complete this topic Pneumococcal Vaccine: Pediat rics (0 to 5 Years) and At-Risk Patients (6 to 49) Years) Aged Out No longer eligible b ased on patient's age to complete this topic RSV under 20 months Aged Out No longe r eligible based on patient's age to complete this topic Rotavirus Vaccines Aged Out No longer eligible based on patient's age to complete this topic Insurance [facility]
== END 2024-12-15 08:46 | disposition home or self-care (01) ==
LOC: HO.HUSH 08:15
PROVIDERS: Visit Provider Nurse Practitioner Family
DX: R31.0 Gross hematuria (principal); F12.20 Cannabis dependence, uncomplicated; Z13.9 Encounter for screening, unspecified
CPT/HCPCS: 99203

== ENCOUNTER 2024-12-27 08:48 | Outpatient (REF) | payer OTHER, SELFPAY ==
[2024-12-27 11:41] LABS: Blood Urea Nitrogen 11 mg/dL (9-16); Estimated Glomerular Filt Rate > 60
== END 2024-12-27 08:49 | disposition home or self-care (01) ==
LOC: HO.HHCL 08:48
PROVIDERS: Visit Provider Nurse Practitioner Family
DX: R31.0 Gross hematuria (principal); F12.20 Cannabis dependence, uncomplicated
CPT/HCPCS: 36415; 82565; 84520

== ENCOUNTER 2025-02-17 08:01 | Outpatient (REF) | payer OTHER, SELFPAY ==
--- NOTE | ~2025-02-17 | CT_ITS ---
CLINICAL HISTORY: GROSS HEMATURIA CT abdomen and pelvis with and without contrast Comparison: CT/FL/SR - CT ABDOMEN PELVIS WO IV CON - 10/20/24 13:43 EST Findings: The lung bases are clear. Hepatic steatosis with possible area of fat sparing in the right liver lobe. The gallbladder and additional solid organs are within normal limits. No renal stones or hydronephrosis. No renal mass. Possible small peripelvic cyst of the left kidney. No bowel obstruction, pneumoperitoneum, or pneumatosis. No lymphadenopathy. Unremarkable aorta. There is mild wall thickening of the bladder. Normal appendix. No acute fracture. IMPRESSION: No kidney stone or renal mass. Mild wall thickening of the bladder. Clinical correlation is recommended to exclude cystitis. Hepatic steatosis. This document has been electronically signed by: Jayne Chappell MD on 02/17/2025 16:46:26
[2025-02-17] MEDS: iohexoL 350 MG/ML 100 ML INFUS..BTL IV (09:29)
== END 2025-02-17 08:02 | disposition home or self-care (01) ==
LOC: HO.CT 08:01
PROVIDERS: Visit Provider Nurse Practitioner Family
DX: F12.20 Cannabis dependence, uncomplicated (principal); R31.0 Gross hematuria
CPT/HCPCS: 74178; Q9967

== ENCOUNTER → 2025-02-17 08:07 | Outpatient (BNV) | payer OTHER, SELFPAY | PROVIDERS: Visit Provider Nuclear Medicine | DX: K76.0 Fatty (change of) liver, not elsewhere classified (principal) | CPT/HCPCS: 74178 ==

== ENCOUNTER 2025-03-07 14:03 | Outpatient (AMB) | payer OTHER, SELFPAY ==
--- NOTE | 2025-03-07 14:15 | MHC.OFFVIS ---
Intake Visit Reasons: cysto/CT/labs Intake Note: Patient is present for Cystoscopy/CT/LABS Urology Medication:NONE Antibiotic Allergy:NONE Blood Thinner:NONE Lot:[id number] Exp:02/03/27 Rip/Mould Operator Required: No Allergies No Known Allergies [No Known Allergies*] Allergy (Verified 03/07/25 14:16) HPI Comments Details: Bj is a pleasant Cymraes-speaking male. He is here for the following urologic conditions - gross hematuria Here for cystoscopy Normal on exam Had some blood oozing from prostate with irritation Recommend switching to vaping from smoking products Gross hematuria Initial sought care through emergency room Imaging - 10/22 CT scan noncontrast no acute findings - 02/19 CT urogram thickened bladder wall Longstanding use of marijuana Cytology - negative 1+ microscopic hematuria PFS Social History (System 12/29/24 @ 07:43 by Beata Garcia CNA) Substance Use Type: Marijuana Review of Systems Const Denies chills and Denies fever(s) Card Reports no additional complaints and Denies syncope Resp Denies cough GI Denies abdominal pain and Denies heartburn Reports as per HPI and Denies change in libido Neuro Denies syncope Psych Denies change in libido Endo Denies change in libido Physical Exam Const General: cooperative, healthy appearing, comfortable and no acute distress Orientation/consciousness: patient oriented x3 HEENT Face and sinus: Yes normal facial exam Mouth: moist mucous membranes Neck Neck: Yes normal visual inspection, Yes full ROM and Yes trachea midline Chest Chest palpation & inspection: normal inspection of the chest Resp Effort & Inspection: normal respiratory effort, able to speak in complete sentences and no respiratory distress GI Inspection: Yes normal to inspection Back/Spine/Pelvis Cervical Spine: normal cervical lordosis Thoracic/Lumbar Spine: thoracic and lumbar spine normal to inspection Skin General skin exam: no rashes or lesions noted Neuro General: patient oriented x3, gait normal, tone normal and moves all extremities Extrem General: Yes normal to inspection and Yes capillary refill normal Office Procedures Cystoscopy Consent Discussed risk and benefit or proposed procedure with the patient. Information consent for procedure given to the patient. Discussed technical aspects, risks, benefits and alternatives in full. Addressed all of the patient's questions and concerns regarding the procedure. The patient demonstrated knowledge and understanding. They wish to proceed with this procedure. Preparation The patient was prepped in the usual manner. A automatic log cut off sawyer was present and in the room. Genitalia was prepped with betadine solution in a sterile manner. Lidocaine Jelly 2% was placed into the urethra and 16Fr flexible Olympus cystoscope was inserted into the meatus after adequate lubrication. Procedure Cystoscopy performed using a disposable Urovue digital 16 Tristanian cystoscope. Meatus uncircumcised Urethra anterior and posterior urethra Prostatic Urethra unremarkable - microscopic hematuria Bladder examination with retroflexion of cystoscope Bladder Orifices normal shape and position Bladder Capacity Normal Trabeculations Grade 0 Cellule Formation None Diverticulum Formation None Mucosal Erythema None - area of erythema on dome of bladder from touchdown Bladder Tumor None [id number] DISPOSABLE SCOPE URO-G FLEXIBLE SCOPE Procedure code (CPT) selection complete Office Meds lidocaine HCl 2 % mucosal jelly in applicator Performing Provider: Juan A Acosta MD Performing Location: [facility] Administered by: Edis Leyva LPN on 03/07/25 14:27 Dose Route Admin Location Dispensed Lot Number Expiration Date [facility] Marksmanship Instructor 10 mL intra-urethral 10 mL nitrofurantoin monohydrate/macrocrystals 100 mg capsule Performing Provider: Juan A Acosta MD Performing Location: [facility] Administered by: Edis Leyva LPN on 03/07/25 14:27 Dose Route Admin Location Dispensed Lot Number Expiration Date [place] Marksmanship Instructor 100 mg PO 1 cap Results AMB Urinalysis, Automated UA Leukoctes 0 Edith/uL Last Edit by FRANCA Jimenez on 03/07/25 14:38 UA Nitrite Negative Last Edit by FRANCA Jimenez on 03/07/25 14:38 UA Urobilinogen 0.2 mg/dL Last Edit by FRANCA Jimenez on 03/07/25 14:38 UA Protein 0 mg/dL Last Edit by FRANCA Jimenez on 03/07/25 14:38 UA pH 6.0 Last Edit by FRANCA Jimenez on 03/07/25 14:38 UA Blood 80 Choco/uL Last Edit by FRANCA Jimenez on 03/07/25 14:48 UA Blood previously reported as 25 Tim Pina 03/07/25 14:48 UA Specific [place] 1.030 Last Edit by FRANCA Jimenez on 03/07/25 14:48 UA Specific [place] previously reported as 1.010 Tim Pina 03/07/25 14:48 UA Ketone Negative Last Edit by FRANCA Jimenez on 03/07/25 14:38 UA Bilirubin 0 mg/dL Last Edit by FRANCA Jimenez on 03/07/25 14:38 UA Glucose 0 mg/dL Last Edit by FRANCA Jimenez on 03/07/25 14:38 Results Reviewed Results Reviewed: Laboratory Last Values Urine pH (Auto) 6.0 03/07/25 14:37 Specific [place] (Auto) 1.030 03/07/25 14:37 Urine Protein (Auto) 0 mg/dL 03/07/25 14:37 Glucose (UA)(Auto) 0 mg/dL 03/07/25 14:37 Urine Ketones (Auto) Negative 03/07/25 14:37 Urine Blood (Auto) 80 Choco/uL 03/07/25 14:37 Urine Nitrite (Auto) Negative 03/07/25 14:37 Urine Bilirubin (Auto) 0 mg/dL 03/07/25 14:37 Urine Urobilinogen (Auto) 0.2 mg/dL 03/07/25 14:37 Leukocyte Esterase (Auto) 0 Edith/uL 03/07/25 14:37 Assessment & Plan Assessment & Plan (1) Gross hematuria: Code(s): R31.0 - Gross hematuria Category: Medical Plan Six-month follow-up UA Orders: Orders AMB Urinalysis Automated Today Z13.9 - Encounter for screening, unspecified CT urogram 02/17/25 F12.20 - Cannabis dependence, uncomplicated, R31.0 - Gross hematuria AMB Cystoscopy Today R31.0 - Gross hematuria Patient Instructions: This note is constructed using voice recognition software. While every effort has been made to ensure accuracy sales marketing director errors may have been included. Imaging studies, laboratory and physical exam results were discussed and reviewed in detail. No major barriers to patient understanding were identified. An opportunity to ask questions regarding the treatment plan was provided. All questions were answered. The patient expressed understanding and agreement with the above treatment plan. The patient is aware they should contact our office by phone for worsening of their current condition or the appearance of new urologic symptoms. Compliance is encouraged with any medications and followup testing that is ordered. It is a privilege to participate in the urologic care of your patient. If you have any questions or concerns regarding treatment for the above conditions, or other urologic issues, please do not hesitate to contact me. The office telephone contact is [phone]. Sincerely, Dr Juan A Acosta MD, [facility] - Urology Compassionate Specialist Care for the Genitourinary System Coding Level of Care Code Est Pt Level 3 (21005) Diagnoses Gross hematuria R31.0 CPT Codes Cystoscopy - CPT: [id number] ([id number])
--- OUTSIDE RECORDS SUMMARY | 2025-03-07 16:49 | XMS_ITS | Clinical Summary ---
Author Organization [employer] Address [address] [place] [address] Care Team Providers Care Health Aide Name Role Phone Jyoti Chopra DO Primary Care Provider Allergies No known active allergies Medications Blood Pressure kit 1 each 1 (one) time per week. LARGE CUFF 1 kit 12/26/2024 Active losartan (Cozaar) 25 MG tablet Take 1 tablet (25 mg) by mouth Once per day. 30 tablet 11 12/26/2024 Active Active Problems Problem Noted Date Diagnosed Date Essential hypertension 12/26/2024 BMI 39.0-39.9,adult 12/26/2024 Hip arthritis 12/26/2024 Encounters Date Type Department Care Team Description 01/11/2025 10:00 AM EDT Clinical Support [facility] [address] [place] [id number] Megan Patterson RN Essential hypertension 01/11/2025 Travel 12/26/2024 10:45 AM EDT Office Visit [facility] [address] [place] [phone] Jyoti Chopra DO Routine history and physical examination of adult (Primary Dx); Essential hypertension; Microscopic hematuria; BMI 39.0-39.9,adult; Need for vaccination 12/26/2024 Travel 12/19/2024 Patient Outreach [facility] [address] [place] [phone] Jyoti Chopra DO Pre-visit Planning (SDOH Screening negative and Tobacco screening negative) from Last 3 Months Immunizations Immunization Administration Dates Next Due Tdap 12/26/2024 Family History Medical History Relation Name Comments Diabetes Maternal Grandfather Heart disease Maternal Grandfather Skin cancer Maternal Grandfather Arthritis Mother Relation Name Status Comments Father Alive Maternal Grandfather Mother Alive Social History Tobacco Use Types Packs/Day Years Used Date Smoking Tobacco: Never Smokeless Tobacco: Never Tobacco Cessation:Counseling Given: Not Answered Alcohol Use Standard Drinks/Week Comments Never 0 (1 standard drink = 0.6 oz pur e alcohol) Depression Answer Date Recorded Patient Health Questionnaire-9 Score 0 12/26/2024 Patient Health Questionnaire-9 Score 0 12/26/2024 Last PHQ-9: Questionnaire Data Not on file 0 12/26/2024 Housing Stability Answer Date Recorded What is your housing situation today? I have shruti servin 12/19/[address] you li ve. Do you have problems with any of the following? None of the above 12/19/2024 Food Insecurity Answer Date Recorded Within the past 12 months, y ou worried that your food would run out before you got money to buy more: Never True 12/19/2024 Within the past 12 months,th e food you bought just didn't last and you didn't have enough money to get more: Never True Transportation Answer Date Recorded In the past 12 months, has l ack of transportation kept you from medical appts, meetings, work or from getting things needed for daily living? No 12/19/2024 Utilities Answer Date Recorded In the past 12 months, has t he electric, gas, oil or water company threatened to shut off services in your home? No 12/19/2024 Depression Answer Date Recorded Patient Health Questionnaire-2 Score 0 12/26/2024 Internet Access Answer Date Recorded Internet Access Q1 Yes 12/19/2024 Internet Access Q2 Not on file 12/19/2024 Sex and Gender Information Value Date Recorded Sex Assigned at Male 07/28/2022 10:35 AM EDT Legal Sex Male 10:35 AM EDT Gender Identity Male 07/28/2022 10:35 AM EDT Sexual Orientation Straight 12/26/2024 12 :02 PM EDT Last Filed Vital Signs Vital Sign Reading Time Taken Comments Blood Pressure 134/79 01/11/2025 10:15 AM EDT Pulse 76 01/11/2025 10:15 AM EDT Temperature 36.2 ??C (97.2 ??F) 12/26/2024 11:03 AM E DT Respiratory Rate 20 12/26/2024 11:03 AM EDT Oxygen Saturation 98% 12/26/2024 11:03 AM EDT Inhaled Oxygen Concentration - - Weight 115 kg (254 lb 9.6 oz) 12/26/2024 11:03 A M EDT Height 170.2 cm (5' 7 ) 12/26/2024 11:03 AM EDT Body Mass Index 39.88 12/26/2024 11:03 AM EDT Plan of Treatment Upcoming Encounters Date Type Department Care Team (Late st Contact Info) Description 04/03/2025 10:30 AM EDT Office Visit [facility] [address] [place], [place] [phone] Mariana Paredes, OD [address] [place] [address] Health Maintenance Due Date Last Done Comments HIV Screening 1985 Lipid Panel 1985 Disability Screening 1985 Alcohol/Substance Use Screening 1997 Family Planning (PISQ) 2000 Hepatitis C Screening 2003 Hepatitis B Vaccines (1 of 3 - 19+ 3-dose series) 2004 COVID-19 Vaccine ( - 2023-2 5 season) 2024 Influenza Vaccine (Season Ended) 2025 SDOH Screening 12/19/2025 12/19/2024 Depression Screening 12/26/2025 12/26/2024, 12/26/2024 Tobacco Screening 12/26/2025 12/26/2024 DTaP/Tdap/Td Vaccines (2 - T d or Tdap) 12/26/2034 12/26/2024 Zoster Vaccines (1 of 2) 2035 RSV Patients and Patients Aged 60 years or older (1 - [...] patient's age to complete this topic Meningococcal B Vaccine Aged Out No l onger eligible based on patient's age to complete this topic Meningococcal Vaccine Aged Out No yesenia coty eligible based on patient's age to complete this topic Pneumococcal Vaccine: Pediatrics (0 to 5 Years) and At-Risk Patients (6 to 49) Years) Aged Out No longer eligible b ased on patient's age to complete this topic RSV under 20 months Aged Out No longe r eligible based on patient's age to complete this topic Rotavirus Vaccines Aged Out No longer eligible based on patient's age to complete this topic Insurance [facility] Care Teams Health Aide Relationship Specialty Start Date End Date Jyoti Chopra DO [address] [place] [address] [place] [address] PCP - General Family Medicine 12/26/24
== END 2025-03-07 15:06 | disposition home or self-care (01) ==
LOC: HO.HUSH 14:04
PROVIDERS: Visit Provider Urology
DX: R31.0 Gross hematuria (principal); Z13.9 Encounter for screening, unspecified
CPT/HCPCS: 52000; 99213

== ENCOUNTER → 2025-03-07 14:03 | Outpatient (BNVA) | payer OTHER, SELFPAY | PROVIDERS: Visit Provider Urology | DX: R31.0 Gross hematuria (principal) | CPT/HCPCS: 52000; 81003; 99212 ==

== ENCOUNTER 2025-06-26 12:21 | Outpatient (REF) | payer OTHER, SELFPAY ==
--- NOTE | ~2025-06-26 | XR_ITS ---
EXAMINATION: XR KNEE 4 OR MORE VIEWS RIGHT HISTORY: chronic low back and b/l knee pain COMPARISON: There are no prior studies available for comparison. FINDINGS: Five views of the right knee are submitted. Osseous mineralization is normal. There is no fracture or dislocation. There is slight spurring along the lateral margin of the patella. The soft tissues are unremarkable. There is no joint effusion. XR/XR knee RT 4V IMPRESSION: Minimal degenerative changes of the patellofemoral compartment. Electronically signed by: Russ Coreas MD 06/26/2025 01:22 PM EDT
--- NOTE | ~2025-06-26 | XR_ITS ---
EXAMINATION: XR LUMBOSACRAL SPINE CLINICAL INFORMATION: chronic low back and b/l knee pain COMPARISON: None available. TECHNIQUE: Three views of the lumbosacral spine. FINDINGS: No significant scoliosis. Normal lordosis. No subluxations. The vertebral bodies and posterior elements are normal. The disc spaces are preserved and the vertebral alignment is normal. The paraspinal soft tissues are normal. XR/XR lumbar spine 2-3V IMPRESSION: Normal radiographs of the lumbar spine. Electronically signed by: Bro Rangel MD 06/26/2025 01:22 PM EDT
--- NOTE | ~2025-06-26 | XR_ITS ---
EXAMINATION: XR KNEE 4 OR MORE VIEWS LEFT HISTORY: chronic low back and b/l knee pain COMPARISON: Comparison is made with the prior examination dated 10/25/2024. FINDINGS: Five views of the left knee are submitted. Osseous mineralization is normal. There is no fracture or dislocation. The joint spaces are preserved. The soft tissues are unremarkable. XR/XR knee LT 4V IMPRESSION: Unremarkable examination of the left knee. Electronically signed by: Russ Coreas MD 06/26/2025 01:21 PM EDT
--- OUTSIDE RECORDS SUMMARY | 2025-06-26 11:30 | XMS_ITS | Encounter Summary ---
Author Organization [employer] Address [address] [place] [address] [address] [place] [address] Care Team Providers Care Crystalizer Tender Name Role Phone Jyoti Chopra DO Primary Care Provider [phone] Reason for Referral * Consultation (Routine) - Pending Review Specialty Diagnoses / Procedures Referred By Contac t Referred To Contact Physical Therapy Diagnoses Chronic bilateral low back pain without sciatica Bilateral chronic knee pain Jyoti Chopra DO [address] [place] [phone] Phone: tel: fax: Referral ID Status Reason Start Date Expiration Date Visits Requested Visits Authorized [id number] Pending Review Specialty Services Required 06/26/2025 06/26/2026 1 1 Reason for Visit * Reason Comments follow up htn Encounter Details Date Type Department Care Team (Late st Contact Info) Description 06/26/2025 11:30 AM EDT Office Visit [facility] [address] [place] [phone] Jyoti Chopra DO [address] [place], [place] [phone] Essential hypertension (Primary Dx); Microscopic hematuria; Chronic bilateral low back pain without sciatica; Bilateral chronic knee pain; Healthcare maintenance; Dietary counseling; Exercise counseling Social History Tobacco Use Types Packs/Day Years Used Date Smoking Tobacco: Never Smokeless Tobacco: Never Alcohol Use Standard Drinks/Week Comments Never 0 [...] Orientation Straight 12/26/2024 12 :02 PM EDT documented as of this encounter Last Filed Vital Signs Vital Sign Reading Time Taken Comments Blood Pressure 126/70 06/26/2025 11:53 AM EDT Pulse 80 06/26/2025 11:53 AM EDT Temperature 36.8 C (98.2 F) 06/26/2025 11:53 AM EDT Respiratory Rate 14 06/26/2025 11:53 AM EDT Oxygen Saturation 96% 06/26/2025 11:53 AM EDT Inhaled Oxygen Concentration - - Weight 113 kg (250 lb) 06/26/2025 11:53 AM EDT Height - - Body Mass Index 39.16 12/26/2024 11:03 AM EDT documented in this encounter Plan of Treatment Scheduled Referrals Name Type Priority Associated Diagnoses Orde r Schedule Referral to Physical Therapy Outpatient Referral Routine Chronic bilateral low back pain without sciatica Bilateral chronic knee pain Expected: 06/26/2025 (Approximate), Expires: 06/26/2026 documented as of this encounter Procedures Procedure Name Priority Date/Time Associated Diagnosis Comments XR KNEE 4+ VIEWS RIGHT Routine 06/26/2025 1:09 PM EDT Bilateral chronic knee pain XR KNEE 4+ VIEWS LEFT Routine 06/26/2025 1:07 PM EDT Bilateral chronic knee pain XR LUMBAR SPINE 2-3 VIEWS Routine 06/26/2025 1:04 PM EDT Chronic bilateral low back pain without sciatica documented in this encounter Results * XR Knee 4+ Views Right (06/26/2025 1:09 PM EDT) Anatomical Region Laterality Modality Lower Extremities, Knee Right Radiogra [facility] 06/26/2025 1:09 PM EDT Narrative 06/26/2025 1:25 [place] [address] XRay Report Signed Patient: Bj Castro MR#: [id number] : 1985 Acct:[id number] Age/Sex: 39 / M ADM Date: 06/26/25 Loc: HO.[facility]HCX Attending Dr: Jyoti Chopra DO Ordering Physician: Jyoti Chopra DO Date of Service: 06/26/25 Procedure(s): XR knee RT 4V Accession Number(s): [id number] cc: Jyoti Chopra DO Reason for Exam: chronic low back and b/l knee pain EXAMINATION: XR KNEE 4 OR MORE VIEWS RIGHT HISTORY: chronic low back and b/l knee pain COMPARISON: There are no prior studies available for comparison. FINDINGS: Five views of the right knee are submitted. Osseous mineralization is normal. There is no fracture or dislocation. There is slight spurring along the lateral margin of the patella. The soft tissues are unremarkable. There is no joint effusion. XR/XR knee RT 4V IMPRESSION: Minimal degenerative changes of the patellofemoral compartment. Electronically signed by: Russ Coreas MD 06/26/2025 01:22 PM EDT RP Dictated By: Russ Coreas MD Signed By: <Electronically signed by Russ Coreas MD in OV> 06/26/25 1322 DD/ 1309 TD/TT: 06/26/25 1316 Spice Grinder: Procedure Note Donotuseinterpreter, Image - 06/26/2025 [place] [address] XRay Report Signed Patient: Bj Castro AMR#: [id number] : 1985Acct:[id number] Age/Sex: 39 / MADM Date: 06/26/25 [facility] Dr: Jyoti Chopra DO Ordering Physician: Jyoti Chopra DO Date of Service: 06/26/25 Procedure(s): XR knee RT 4V Accession Number(s): [id number] cc: Jyoti Chopra DO Reason for Exam: chronic low back and b/l knee pain EXAMINATION: XR KNEE 4 OR MORE VIEWS RIGHT HISTORY: chronic low back and b/l knee pain COMPARISON: There are no prior studies available for comparison. FINDINGS: Five views of the right knee are submitted. Osseous mineralization is normal. There is no fracture or dislocation. There is slight spurring along the lateral margin of the patella. The soft tissues are unremarkable. There is no joint effusion. XR/XR knee RT 4V IMPRESSION: Minimal degenerative changes of the patellofemoral compartment. Electronically signed by: Russ Coreas MD 06/26/2025 01:22 PM EDT RP Dictated By: Russ Coreas MD Signed By: <Electronically signed by Russ Coreas MD in OV> 06/26/25 1322 DD/ 1309 TD/TT: 06/26/25 1316 Spice Grinder: Jyoti Chopra DO IMG XR PROCEDURES Final Resu lt * XR Knee 4+ Views Left (06/26/2025 1:07 PM EDT) Anatomical Region Laterality Modality Lower Extremities, Knee Left Radiogra phic Imaging 06/26/2025 1:07 PM EDT Narrative 06/26/2025 1:24 PM EDT [address] [address] XRay Report Signed Patient: Bj Castro MR#: [id number] : 1985 Acct:[id number] Age/Sex: 39 / M ADM Date: 06/26/25 Loc: HO.HHCX Attending Dr: Jyoti Chopra DO Ordering Physician: Jyoti Chopra DO Date of Service: 06/26/25 Procedure(s): XR knee LT 4V Accession Number(s): [id number] cc: Jyoti Chopra DO Reason for Exam: chronic low back and b/l knee pain EXAMINATION: XR KNEE 4 OR MORE VIEWS LEFT HISTORY: chronic low back and b/l knee pain COMPARISON: Comparison is made with the prior examination dated 10/25/2024. FINDINGS: Five views of the left knee are submitted. Osseous mineralization is normal. There is no fracture or dislocation. The joint spaces are preserved. The soft tissues are unremarkable. XR/XR knee LT 4V IMPRESSION: Unremarkable examination of the left knee. Electronically signed by: Russ Coreas MD 06/26/2025 01:21 PM EDT Dictated By: Russ Coreas MD Signed By: <Electronically signed by Russ Coreas MD in OV> 06/26/25 1321 DD/ 1307 TD/TT: 06/26/25 1316 Spice Grinder: Procedure Note Donotuseinterpreter, Image - 06/26/[address] [address] XRay Report Signed Patient: Bj Castro AMR#: [id number] : 1985Acct:[id number] Age/Sex: 39 / MADM Date: 06/26/25 Loc: [facility] Attending Dr: Jyoti Chopra DO Ordering Physician: Jyoti Chopra DO Date of Service: 06/26/25 Procedure(s): XR knee LT 4V Accession Number(s): [id number] cc: Jyoti Chopra DO Reason for Exam: chronic low back and b/l knee pain EXAMINATION: XR KNEE 4 OR MORE VIEWS LEFT HISTORY: chronic low back and b/l knee pain COMPARISON: Comparison is made with the prior examination dated 10/25/2024. FINDINGS: Five views of the left knee are submitted. Osseous mineralization is normal. There is no fracture or dislocation. The joint spaces are preserved. The soft tissues are unremarkable. XR/XR knee LT 4V IMPRESSION: Unremarkable examination of the left knee. Electronically signed by: Russ Coreas MD 06/26/2025 01:21 PM EDT Dictated By: Rsus Coreas MD Signed By: <Electronically signed by Russ Coreas MD in OV> 06/26/25 1321 DD/ 1307 TD/TT: 06/26/25 1316 Spice Grinder: us Jyoti Chopra DO IMG XR PROCEDURES Final Resu lt * XR Lumbar Spine 2-3 Views (06/26/2025 1:04 PM EDT) Anatomical Region Laterality Modality Spine, L-spine Radiographic Lay ging 06/26/2025 1:04 PM EDT Narrative 06/26/2025 1:25 PM EDT [address] [address] XRay Report Signed Patient: Bj Castro MR#: [id number] : 1985 Acct:[id number] Age/Sex: 39 / M ADM Date: 06/26/25 Loc: [facility] Attending Dr: Jyoti Chopra DO Ordering Physician: Jyoti Chopra DO Date of Service: 06/26/25 Procedure(s): XR lumbar spine 2-3V Accession Number(s): [id number] cc: Jyoti Chopra DO Reason for Exam: chronic low back and b/l knee pain EXAMINATION: XR LUMBOSACRAL SPINE CLINICAL INFORMATION: chronic low back and b/l knee pain COMPARISON: None available. TECHNIQUE: Three views of the lumbosacral spine. FINDINGS: No significant scoliosis. Normal lordosis. No subluxations. The vertebral bodies and posterior elements are normal. The disc spaces are preserved and the vertebral alignment is normal. The paraspinal soft tissues are normal. XR/XR lumbar spine 2-3V IMPRESSION: Normal radiographs of the lumbar spine. Electronically signed by: Bro Rangel MD 06/26/2025 01:22 PM EDT RP Dictated By: Bro Rangel MD Signed By: <Electronically signed by Bro Rangel MD in OV> 06/26/25 1322 DD/ 1304 TD/TT: 06/26/25 1316 Spice Grinder: Procedure Note Donotuseinterpreter, Image - 06/26/2025 [place] [address] XRay Report Signed Patient: Bj Castro [facility]#: [id number] : 1985Acct:[id number] Age/Sex: 39 / MADM Date: 06/26/25 Loc: E[facility]ANX Attending Dr: Jyoti Chopra DO Ordering Physician: Jyoti Chopra DO Date of Service: 06/26/25 Procedure(s): XR lumbar spine 2-3V Accession Number(s): [id number] cc: Jyoti Chopra DO Reason for Exam: chronic low back and b/l knee pain EXAMINATION: XR LUMBOSACRAL SPINE CLINICAL INFORMATION: chronic low back and b/l knee pain COMPARISON: None available. TECHNIQUE: Three views of the lumbosacral spine. FINDINGS: No significant scoliosis. Normal lordosis. No subluxations. The vertebral bodies and posterior elements are normal. The disc spaces are preserved and the vertebral alignment is normal. The paraspinal soft tissues are normal. XR/XR lumbar spine 2-3V IMPRESSION: Normal radiographs of the lumbar spine. Electronically signed by: Bro Rangel MD 06/26/2025 01:22 PM EDT Dictated By: Bro Rangel MD Signed By: <Electronically signed by Bro Rangel MD in OV> 06/26/25 1322 DD/ 1304 TD/TT: 06/26/25 1316 Spice Grinder: Jyoti Chopra DO IMG XR PROCEDURES Final Resu lt documented in this encounter Visit Diagnoses Diagnosis Essential hypertension- Primary Unspecified essential hypertension Microscopic hematuria Chronic bilateral low back pain without sciatica Bilateral chronic knee pain Healthcare maintenance Dietary counseling Dietary surveillance and counseling Exercise counseling documented in this encounter Additional Health Concerns Assessment Noted Time PHQ-9 Depression Total Score: 0 12/27/19 25 11:04 AM EDT documented as of this encounter Care Teams Crystalizer Tender Relationship Specialty Start Date End Date Jyoti Chopra DO [address] [place] [address] PCP - General Family Medicine 12/26/24 documented as of this encounter
--- OUTSIDE RECORDS SUMMARY | 2025-06-26 13:35 | XMS_ITS | Clinical Summary ---
Author Organization [employer] Address [address] [facility] [address] [place] [address] Care Team Providers Care Cmo & President Name Role Phone Nav Jyoti BYRD Primary Care Provider Allergies No known active allergies Medications Blood Pressure kit 1 each 1 (one) time per week. LARGE CUFF 1 kit 5 Active losartan (Cozaar) 25 MG tablet Take 1 tablet (25 mg) by mouth Once per day. 30 tablet 11 5 12/27/19 26 Active acetaminophen (Tylenol 8 Hour) 650 MG ER tablet Take 1 tablet (650 mg) by mouth every 8 (eight) hours if needed for mild pain. Do not crush, chew, or split. 40 tablet 1 5 07/26/20 25 Active naproxen (Naprosyn) 500 MG tablet Take 1 tablet (500 mg) by mouth if needed in the morning and at bedtime for mild pain. 40 tablet 1 5 06/26/20 26 Active baclofen (Lioresal) 10 MG tablet Take 1 tablet (10 mg) by mouth if needed in the morning, at noon, and at bedtime for muscle spasms. 60 tablet 1 5 08/25/20 25 Active Diclofenac Sodium 1 % gel Apply 2 g topically if needed in the morning, at noon, in the evening, and at bedtime (pain). 150 g 3 5 Active Active Problems Problem Noted Date Diagnosed Date Essential hypertension 12/26/2024 BMI 39.0-39.9,adult 12/26/2024 Hip arthritis 12/26/2024 Encounters Date Type Department Care Team Description 06/26/2025 11:30 AM EDT Office Visit [facility] [address] [place] [address] Jyoti Chopra DO Essential hypertension (Primary Dx); Microscopic hematuria; Chronic bilateral low back pain without sciatica; Bilateral chronic knee pain; Healthcare maintenance; Dietary counseling; Exercise counseling 06/26/2025 Travel 06/26/2025 Telephone [facility] [address] [place] [address] Jyoti Chopra DO Chart Prep 06/19/2025 Patient Outreach [facility] [address] [place] [address] Jyoti Chopra DO Pre-visit Planning (SDOH screening completed on 12/19/2024) 05/31/2025 Telephone [facility] [address] [place] [address] Jyoti Chopra DO Recall Appointment 05/31/2025 Travel 04/03/2025 10:30 AM EDT Office Visit [facility] [address] [place] [address] Tarka, Mariana, OD Normal eye exam (Primary Dx); Hypermetropia, bilateral 04/03/2025 Travel from Last 3 Months Immunizations Immunization Administration [...] (250 lb) 06/26/2025 11:53 AM EDT Height 170.2 cm (5' 7 ) 12/26/2024 11:03 AM EDT Body Mass Index 39.16 12/26/2024 11:03 AM EDT Plan of Treatment Health Maintenance Due Date Last Done Comments HIV Screening 1985 Lipid Panel 1985 Disability Screening 1985 Family Planning (PISQ) 2000 HPV Vaccines (1 - Male 3-dos e series) 2000 Hepatitis C Screening 2003 Hepatitis B Vaccines (1 of 3 - 19+ 3-dose series) 2004 COVID-19 Vaccine (1 - 2023-2 5 season) 2025 Influenza Vaccine (#1) 2025 SDOH Screening 12/19/2025 12/19/2024 Depression Screening 12/26/2025 12/26/2024, 12/26/2024 Tobacco Screening 04/03/2026 04/03/2025 Alcohol/Substance Use Screening 06/26/2026 06/26/2025 DTaP/Tdap/Td Vaccines (2 - T d or [...] Years) and At-Risk Patients (6 to 49) Years Aged Out No longer eligible b ased on patient's age to complete this topic RSV under 20 months Aged Out No longe r eligible based on patient's age to complete this topic Rotavirus Vaccines Aged Out No longer eligible based on patient's age to complete this topic Procedures Procedure Name Priority Date/Time Associated Diagnosis Comments XR KNEE 4+ VIEWS RIGHT Routine 06/26/2025 1:09 PM EDT Bilateral chronic knee pain XR KNEE 4+ VIEWS LEFT Routine 06/26/2025 1:07 PM EDT Bilateral chronic knee pain XR LUMBAR SPINE 2-3 VIEWS Routine 06/26/2025 1:04 PM EDT Chronic bilateral low back pain without sciatica from Last 3 Months Results * XR Knee 4+ Views Right (06/26/2025 1:09 PM EDT) Anatomical Region Laterality Modality Lower Extremities, Knee Right Radiogra phic Imaging 06/26/2025 1:09 PM EDT Narrative 06/26/2025 1:25 PM EDT [facility] [address] [place] [address] XRay Report Signed Patient: Bj Castro MR#: [id number] : 1985 Acct:[id number] Age/Sex: 39 / M ADM Date: 06/26/25 Loc: .HHCX Attending Dr: Jyoti Chopra DO Ordering Physician: Jyoti Chopra DO Date of Service: 06/26/25 Procedure(s): XR knee RT 4V Accession Number(s): [id number] cc: Jyoti Chopra DO Reason for Exam: [...] Russ Coreas MD 06/26/2025 01:22 PM EDT Dictated By: Russ Coreas MD Signed By: <Electronically signed by Russ Coreas MD in OV> 06/26/25 1322 DD/ 1309 TD/TT: 06/26/25 1316 Informatics Coordinator: Procedure Note Donotuseinterpreter, Image - 06/26/2025 [facility] [address] [place] [address] XRay Report Signed Patient: Bj Castro AMR#: [id number] : 1985Acct:[id number] Age/Sex: 39 / MADM Date: 06/26/25 Loc: [facility] Attending Dr: Jyoti Chopra DO Ordering Physician: Jyoti Chopra DO Date of Service: 06/26/25 Procedure(s): XR knee RT 4V Accession Number(s): [id number] cc: Jyoti Chopra DO Reason for Exam: [...] Russ Coreas MD 06/26/2025 01:22 PM EDT Dictated By: Russ Coreas MD Signed By: <Electronically signed by Russ Coreas MD in OV> 06/26/25 1322 DD/ 1309 TD/TT: 06/26/25 1316 Informatics Coordinator: Jyoti Chopra DO IMG XR PROCEDURES Final Resu lt * XR Knee 4+ Views Left (06/26/2025 1:07 PM EDT) Anatomical Region Laterality Modality Lower Extremities, Knee Left Radiogra [facility] 06/26/2025 1:07 PM EDT Narrative 06/26/2025 1:24 [place] [address] XRay Report Signed Patient: Bj Castro MR#: [id number] : 1985 Acct:[id number] Age/Sex: 39 / M ADM Date: 06/26/25 Loc: EHSANX Attending Dr: Jyoti Chopra DO Ordering Physician: Jyoti Chopra DO Date of Service: 06/26/25 Procedure(s): XR knee LT 4V Accession Number(s): [id number] cc: Jyoti Chopar DO Reason for Exam: chronic low back [...] Russ Coreas MD 06/26/2025 01:21 PM EDT RP Dictated By: Russ Coreas MD Signed By: <Electronically signed by Russ Coreas MD in OV> 06/26/25 1321 DD/ 1307 TD/TT: 06/26/25 1316 Informatics Coordinator: Procedure Note Donotuseinterpreter, Image - 06/26/[address] [address] XRay Report Signed Patient: Bj Castro [facility]#: [id number] : 1985Acct:[id number] Age/Sex: 39 / MADM Date: 06/26/25 Loc: HO.HHCX Attending Dr: Jyoti Chopra DO Ordering Physician: Jyoti Chopra DO Date of Service: 06/26/25 Procedure(s): XR knee LT 4V Accession Number(s): [id number] cc: Jyoti Chopra DO Reason for Exam: [...] Russ Coreas MD 06/26/2025 01:21 PM EDT RP Dictated By: Russ Coreas MD Signed By: <Electronically signed by Russ Coreas MD in OV> 06/26/25 1321 DD/ 1307 TD/TT: 06/26/25 1316 Informatics Coordinator: Jyoti Chopra DO IMG XR PROCEDURES Final Resu lt * XR Lumbar Spine 2-3 Views (06/26/2025 1:04 PM EDT) Anatomical Region Laterality Modality Spine, L-spine Radiographic Lay ging 06/26/2025 1:04 PM EDT Narrative 06/26/2025 1:25 [place] [address] XRay Report Signed Patient: Bj Castro MR#: [id number] : 1985 Acct:[id number] Age/Sex: 39 / M ADM Date: 06/26/25 [facility]: Jyoti Chopra DO Ordering Physician: Jyoti Chopra DO Date of Service: 06/26/25 Procedure(s): XR lumbar spine 2-3V Accession Number(s): [id number] cc: Jyoti Chopra DO Reason for Exam: [...] 06/26/25 1322 DD/ 1304 TD/TT: 06/26/25 1316 Informatics Coordinator: Procedure Note Deondreotdiannater, Image - 06/26/[address] [address] XRay Report Signed Patient: Bj Castro AMR#: [id number] : 1985Acct:[id number] Age/Sex: 39 / MADM Date: 06/26/25 Loc: HO.HHX Attending Dr: Jyoti Chopra DO Ordering Physician: Jyoti Chopra DO Date of Service: 06/26/25 Procedure(s): XR lumbar spine 2-3V Accession Number(s): [id number] cc: Jyoti Chopra DO Reason for Exam: [...] 06/26/25 1322 DD/ 1304 TD/TT: 06/26/25 1316 Informatics Coordinator: Jyoti Chopra DO IMG XR PROCEDURES Final Resu lt from Last 3 Months Insurance [address] [place] [phone] [facility] [place] [id number] [address] [place] [address] [place] [address] [address] [place] [address] Care Teams Cmo & President Relationship Specialty Start Date End Date Jyoti Chopra DO [address] [place] [address] PCP - General Family Medicine 12/26/24
--- OUTSIDE RECORDS SUMMARY | 2025-06-26 13:35 | XMS_ITS | Encounter Summary ---
Author Organization [facility] Address [address] [place] [address] [address], [place] [address] Care Team Providers Care Cryptographic Machine Operator Name Role Phone CharleenJyoti gómez Primary Care Provider + [phone] Reason for Visit * Reason Onset Date Comments NEW PT 10/21/2024 Encounter Details Date Type Department Care Team ([facility] st Contact Info) Description 10/21/2024 Telephone [facility] [address] [place] [address] Gio Hernandez MD [address] [place] [address] NEW PT Social History Tobacco Use Types Packs/Day Years Used Date Smoking Tobacco: Never Assessed Sex and Gender Information Value Date Recorded Sex Assigned at Male 07/28/2022 10:35 AM EDT Legal Sex Male 10:35 AM EDT Gender Identity Male 07/28/2022 10:35 AM EDT Sexual Orientation Straight 12/26/2024 12 :02 PM EDT documented as of this encounter Miscellaneous Notes * Telephone Encounter - Aaron Goncalves - 10/21/2024 1:23 PM EST Patient added to [facility] New Patient wait list as 10-21-24 * Telephone Encounter - Pernell Kasper - 10/21/2024 12:41 PM EST TC from caller requesting NEW PATIENT visit . DX : Arthritis Medical Concern: UTI Blood urine Needs to visit urologist Insurance name : [facility] Location : [place] Demographic information updated documented in this encounter Plan of Treatment Not on file documented as of this encounter Visit Diagnoses Not on filedocumented in this encounter Care Teams Cryptographic Machine Operator Relationship Specialty Start Date End Date Jyoti Chopra DO [address] [place] [address] PCP - General Family Medicine 12/26/24 documented as of this encounter
--- OUTSIDE RECORDS SUMMARY | 2025-06-26 13:36 | XMS_ITS | Encounter Summary ---
Author Organization [employer] Address [address] [facility] [address] [place] [address] Care Team Providers Care Senior Java Programmer Analyst Name Role Phone Jyoti Chopra Primary Care Provider [phone] Encounter Details Date Type Department Care Team (Latest Contact Info) Description 06/26/2025 Travel Social History Tobacco Use Types Packs/Day Years [...] PM EDT documented as of this encounter Plan of Treatment Not on file documented as of this encounter Visit Diagnoses Not on filedocumented in this encounter Additional Health Concerns Assessment Noted Time PHQ-9 Depression Total Score: 0 12/27/19 25 11:04 AM EDT documented as of this encounter Care Teams Senior Java Programmer Analyst Relationship Specialty Start Date End Date Jyoti Chopra DO [address] [place] [address] PCP - General Family Medicine 12/26/24 documented as of this encounter
--- OUTSIDE RECORDS SUMMARY | 2025-06-26 13:36 | XMS_ITS | Encounter Summary ---
Author Organization [employer] Address [address] [facility] [address] [place] [address] Care Team Providers Care Scrap Sorter Name Role Phone Jyoti Chopra DO Primary Care Provider [phone] Reason for Visit * Reason Onset Date Comments Chart Prep 06/26/2025 Encounter Details Date Type Department Care Team ([facility] st Contact Info) Description 06/26/2025 Telephone [facility] [address] [place] [address] Jyoti Chopra DO [address] [place] [address] Chart Prep Social History Tobacco Use Types Packs/Day Years [...] encounter Miscellaneous Notes * Telephone Encounter - Analia Capps [place] - 06/26/2025 8:32 AM EDT Chart Prep Labs: not done Images: not applicable Referrals: complete Vaccines due: Covid, Flu, Hep B, and HPV Screenings: HIV Screening and Hepatitis C Screening Overdue care gaps: SBIRT, PHQ-9, HUGH-7, and Disability screen documented in this encounter Plan of Treatment Not on file documented as of this encounter Visit Diagnoses Not on filedocumented in this encounter Additional Health Concerns Assessment Noted Time PHQ-9 Depression Total Score: 0 12/27/19 11:04 AM EDT documented as of this encounter Care Teams Scrap Sorter Relationship Specialty Start Date End Date Jyoti Chopra DO [address] [place] [address] PCP - General Family Medicine 12/26/24 documented as of this encounter
== END 2025-06-26 12:22 | disposition home or self-care (01) ==
LOC: HO.HHCX 12:21
PROVIDERS: PCP Family Medicine; Visit Provider Family Medicine
DX: M25.561 Pain in right knee (principal); M25.562 Pain in left knee; M54.50 Low back pain, unspecified; G89.29 Other chronic pain
CPT/HCPCS: 72100; 73564

== ENCOUNTER → 2025-06-26 12:25 | Outpatient (BNV) | payer OTHER, SELFPAY | PROVIDERS: PCP Family Medicine; Visit Provider Radiology Diagnostic Radiology | DX: M54.50 Low back pain, unspecified (principal); M25.562 Pain in left knee; M25.561 Pain in right knee | CPT/HCPCS: 72100; 73564 ==